=== PATIENT | female | born 1980 | race Caucasian/White ===

== ENCOUNTER → 2019-06-12 09:58 | Outpatient (BNVA) | payer BC, SELFPAY | PROVIDERS: Family Provider Family Medicine; PCP Family Medicine; Referring Provider Family Medicine; Visit Provider Internal Medicine Rheumatology | DX: M32.14 Glomerular disease in systemic lupus erythematosus (principal); Z79.899 Other long term (current) drug therapy; M32.9 Systemic lupus erythematosus, unspecified | CPT/HCPCS: 36415; 80076; 80197; 82565; 82575; 84132; 84156; 85025 ==

== ENCOUNTER → 2019-06-19 10:02 | Outpatient (BNVA) | payer BC, SELFPAY | PROVIDERS: Family Provider Family Medicine; PCP Family Medicine; Visit Provider Internal Medicine Rheumatology | DX: M32.9 Systemic lupus erythematosus, unspecified (principal); Z79.899 Other long term (current) drug therapy | CPT/HCPCS: 36415; 80197 ==

== ENCOUNTER → 2019-07-03 09:04 | Outpatient (BNVA) | payer BC, SELFPAY | PROVIDERS: Family Provider Family Medicine; PCP Family Medicine; Visit Provider Internal Medicine Rheumatology | DX: M32.9 Systemic lupus erythematosus, unspecified (principal); Z79.899 Other long term (current) drug therapy | CPT/HCPCS: 36415; 80197; 82565; 82575; 84132; 84156 ==

== ENCOUNTER → 2019-07-10 10:14 | Outpatient (BNVA) | payer BC, SELFPAY | PROVIDERS: Family Provider Family Medicine; PCP Family Medicine; Visit Provider Internal Medicine Rheumatology | DX: M32.14 Glomerular disease in systemic lupus erythematosus (principal); Z79.899 Other long term (current) drug therapy; R80.9 Proteinuria, unspecified; L65.8 Other specified nonscarring hair loss; T50.905A Adverse effect of unspecified drugs, medicaments and biological substances, initial encounter | CPT/HCPCS: 36415; 80076; 80197; 82565; 84132; 99215; G0463 ==

== ENCOUNTER → 2019-07-10 12:30 | Outpatient (BNVA) | payer BC, SELFPAY | PROVIDERS: Family Provider Family Medicine; PCP Family Medicine; Visit Provider Internal Medicine Rheumatology | DX: M32.14 Glomerular disease in systemic lupus erythematosus (principal) | CPT/HCPCS: 85025 ==

== ENCOUNTER → 2019-08-08 08:50 | Outpatient (BNVA) | payer BC, SELFPAY | PROVIDERS: Family Provider Family Medicine; PCP Family Medicine; Visit Provider Internal Medicine Rheumatology | DX: M32.14 Glomerular disease in systemic lupus erythematosus (principal); R80.9 Proteinuria, unspecified; Z79.899 Other long term (current) drug therapy | CPT/HCPCS: 36415; 80076; 80197; 82565; 82575; 84156; 85651; 86140 ==

== ENCOUNTER → 2019-08-08 08:58 | Outpatient (BNVA) | payer BC, SELFPAY | PROVIDERS: Family Provider Family Medicine; PCP Family Medicine; Visit Provider Internal Medicine Rheumatology | DX: M32.14 Glomerular disease in systemic lupus erythematosus (principal); R80.9 Proteinuria, unspecified; Z79.899 Other long term (current) drug therapy | CPT/HCPCS: 85025 ==

== ENCOUNTER → 2019-09-07 09:01 | Outpatient (BNVA) | payer BC, SELFPAY | PROVIDERS: Family Provider Family Medicine; PCP Family Medicine; Visit Provider Internal Medicine Rheumatology | DX: Z79.899 Other long term (current) drug therapy (principal) | CPT/HCPCS: 36415; 80076; 80197; 81001; 82565; 82570; 84156; 85025; 86140; 86160; 87086 ==

== ENCOUNTER → 2019-10-31 13:24 | Outpatient (BNVA) | payer BC, SELFPAY | PROVIDERS: Family Provider Family Medicine; PCP Family Medicine; Visit Provider Internal Medicine Rheumatology | DX: Z79.899 Other long term (current) drug therapy (principal); M32.14 Glomerular disease in systemic lupus erythematosus; N05.9 Unspecified nephritic syndrome with unspecified morphologic changes | CPT/HCPCS: 36415; 80197; 81003; 82565; 82575; 84156 ==

== ENCOUNTER → 2019-11-10 09:11 | Outpatient (BNVA) | payer BC, SELFPAY | PROVIDERS: Family Provider Family Medicine; PCP Family Medicine; Visit Provider Internal Medicine Rheumatology | DX: M32.14 Glomerular disease in systemic lupus erythematosus (principal); Z79.899 Other long term (current) drug therapy; R80.8 Other proteinuria; L65.9 Nonscarring hair loss, unspecified | CPT/HCPCS: 99214 ==

== ENCOUNTER → 2020-01-15 09:47 | Outpatient (BNVA) | payer BC, SELFPAY | PROVIDERS: Family Provider Family Medicine; PCP Family Medicine; Visit Provider Internal Medicine Rheumatology | DX: M32.14 Glomerular disease in systemic lupus erythematosus (principal); Z79.899 Other long term (current) drug therapy | CPT/HCPCS: 36415; 80076; 80197; 81001; 82565; 82575; 84156; 85025; 85651; 86140 ==

== ENCOUNTER → 2020-02-13 11:47 | Outpatient (BNVA) | payer BC, SELFPAY | PROVIDERS: Family Provider Family Medicine; PCP Family Medicine; Visit Provider Internal Medicine Rheumatology | DX: M32.14 Glomerular disease in systemic lupus erythematosus (principal); Z79.899 Other long term (current) drug therapy; R80.9 Proteinuria, unspecified; L65.8 Other specified nonscarring hair loss; O22.30 Deep phlebothrombosis in pregnancy, unspecified trimester; T50.905A Adverse effect of unspecified drugs, medicaments and biological substances, initial encounter; D64.9 Anemia, unspecified; Z3A.00 Weeks of gestation of pregnancy not specified; Z79.01 Long term (current) use of anticoagulants | CPT/HCPCS: 99214; 99215 ==

== ENCOUNTER → 2020-03-08 12:00 | Outpatient (BNVA) | payer BC, SELFPAY | PROVIDERS: Family Provider Family Medicine; PCP Family Medicine; Visit Provider Obstetrics & Gynecology | DX: N92.0 Excessive and frequent menstruation with regular cycle (principal) | CPT/HCPCS: 84443 ==

== ENCOUNTER → 2020-03-21 14:00 | Outpatient (BNVA) | payer BC, SELFPAY | PROVIDERS: Family Provider Family Medicine; PCP Family Medicine; Visit Provider Obstetrics & Gynecology | DX: Z86.718 Personal history of other venous thrombosis and embolism (principal) | CPT/HCPCS: 76830 ==

== ENCOUNTER → 2020-03-26 10:02 | Outpatient (BNVA) | payer BC, SELFPAY | PROVIDERS: Family Provider Family Medicine; PCP Family Medicine; Visit Provider Internal Medicine Rheumatology | DX: M32.9 Systemic lupus erythematosus, unspecified (principal); Z79.899 Other long term (current) drug therapy | CPT/HCPCS: 36415; 80076; 80197; 81001; 82565; 82570; 82728; 83540; 83550; 84156; 85025; 85651; 86140 ==

== ENCOUNTER → 2020-04-04 09:45 | Outpatient (BNVA) | payer BC, SELFPAY | PROVIDERS: Family Provider Family Medicine; PCP Family Medicine; Visit Provider Obstetrics & Gynecology | DX: Z11.59 Encounter for screening for other viral diseases (principal); N92.0 Excessive and frequent menstruation with regular cycle | CPT/HCPCS: 87635 ==

== ENCOUNTER 2020-04-09 05:53 | Day surgery (SDC) | payer BC, SELFPAY ==
[2020-04-05 09:38] VITALS: BMI 23.6
--- NOTE | 2020-04-05 09:48 | P.ANESASSM_ITS ---
Pre-Anesthetic Assessment Pre-Anesthetic Assessment: Height/Weight: Height 1.68 m Weight 66.224 kg Preop Diagnosis: Undesired fertility Proposed Procedure: Operation Date: 04/09/20 07:00 Proposed Procedures p Hysteroscopy w/ endometrial Ablation w/ Novasure 85050 50793 N92.0 Z30.431(Not Applicable) - Miko Munson MD s Laparoscopic Tubal Fulguration with complete salpingectomy(Bilateral) - Miko Munson MD Familial anesthetic complications: None Social: Social History: No alcohol and No tobacco Exam: Pre-Anes Outpt Exam: alert, oriented x 3, clear to auscultation bilaterally and regular rate & rhythm Airway: Cervical ROM: WNL MP: 2 Dentition: Chipped and False CV/HEM: CV/HEM: Anemia, DVT (2019 on eliquis) and HTN : : Chronic renal Insufficiency Comments: lupus nephritis Metabolic: Metabolic: Hyperlipidemia Comments: Lupus on immunosuppressants (MFA, prednisone, prograff) Prograff levels checked every 3 months - last one checked in february Neuropsych: Neuropsych: 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, dilated L pupil ) Anesthetic Plan: ASA status: 3 Anesthesia: General Risk of > 500 ml blood loss (7ml/kg in children): No PFSH Anesthesia PFSH: Medical History (Updated 03/11/20 @ 18:23 by Miko Munson MD) Drug-related hair loss High risk medication use History of CVA (cerebrovascular accident) (~2007) History of deep vein thrombosis (DVT) during History of DVT of lower extremity (~2018) all in the left leg--- has been on Eliquis since that time Labile hypertension Lupus Lupus nephritis, ISN/RPS class IV Non-nephrotic range proteinuria 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 Shortness of breath Surgical History History of abdominal surgery placement of feeding tube; later removed Family History Grandmother Colon cancer maternal Cancer PGM-- Pancreatic Grandfather Diabetes Maternal Heart disease Paternal and Maternal Hypercholesteremia Maternal and Paternal Hypertension Maternal Family/Other Colon cancer Maternal Uncle Mother Thyroid disease Social History (Updated 03/25/20 @ 17:27 by Miko Munson MD) Smoking and tobacco status: former smoker Alcohol intake: current Substance/Drug Use: never History of recent travel: No Additional social history: - Tobacco use: Former- November 2008 Alcohol use: Occasionally Drug use: Never Data Anesthesia Cardiac Studies: No Data to Display
[2020-04-09] VITALS (7 sets, daily range): BP systolic 111–135; BP diastolic 72–89; PULSE 59–81; RESP 12–19; TEMP 36.2–36.7; O2SAT 99–100
[2020-04-09 06:14] LABS: OR HCG Qualitative Urine Negative (Negative)
[2020-04-09] MEDS: sodium chloride 0.9% 1,000 ML 30 ML IV (06:29)
[2020-04-09] MEDS: ketorolac 30 mg/mL INJ IVP (06:34)
[2020-04-09 06:43] LABS: Basophils % 0.3 %; Eosinophils % 0.5 %; Hematocrit 34.7 % (37.0-47.0); Hemoglobin 10.9 g/dL (11.5-15.3); Lymphocytes % 46.8 %; Mean Corpuscular HGB Conc 31.4 g/dL (30.0-36.0); Mean Corpuscular Hemoglobin 27.9 pg (28.0-34.0); Mean Platelet Volume 11.3 fL (7.4-10.4); Monocytes # 0.5 10^3/uL (0.2-0.9); Monocytes % 7.6 %; Neutrophils # 2.88 10^3/uL (1.8-7.7); Neutrophils % 44.6 %; Nucleated Red Blood Cells % 0 %; Platelet Count 224 10^3/cmm (130-400); Red Cell Distribution Width 14.8 % (12.1-15.1); White Blood Count 6.5 10^3/uL (4.0-10.0)
--- NOTE | 2020-04-09 06:48 | W.PM.OPSUD ---
Surgery/Procedure H&P Update DATE OF PROCEDURE: April 09, 2020 DATE H&P PERFORMED: 03/21/20 H&P UPDATE INFORMATION: I have reviewed H&P completed within last 30 days, I have examined patient prior to procedure, No changes to prior documentation and H&P is in [facility] EMR on date indicated PREOP DIAGNOSIS: Menorrhagia, Iron deficiency anemia, Undesired fertility PLANNED PROCEDURE: Operation Date: 04/09/20 07:00 Proposed Procedures p Hysteroscopy w/ endometrial Ablation w/ Novasure 86304 [id number] N92.0 Z30.431(Not Applicable) - Miko Munson MD s Laparoscopic Tubal Fulguration with complete salpingectomy(Bilateral) - Miko Munson MD
--- NOTE | 2020-04-09 08:04 | P.OP_ITS ---
Operative Report Date of procedure: April 09, 2020 Pre-op Diagnosis: Menorrhagia, Iron deficiency anemia, Undesired fertility Post-op Diagnosis: Menorrhagia, Iron deficiency anemia, Undesired fertility Procedure Done: Hysteroscopy with NovaSure endometrial ablation, Laparoscopy, Paracervical block Specimens removed/disposition: None Surgeon: Miko Munson Credit Collections Clerk: None Anesthesia: General and Other (Paracervical block with 2% lidocaine with epinep hrine) Estimated blood loss (mL): 5 IV fluids (mL): 200 Urine output (mL): 5 Complications: None Findings: Extensive abdominal adhesions. Left upper quadrant with extensive adhesions between the liver and omentum to the abdominal wall, forming a small pocket. Left lower quadrant extensive adhesions. Unable to perform laparoscopic sterilization. Brief History: Patient is a 39-year-old female, LMP 03/06/2020, control: ParaGard IUD. She presented to the office due to heavy menstrual bleeding. She had had a DVT approximately 1 year ago and was on Eliquis. She typically has to change a pad every 2 hours and will bleed through to her clothing at least once with each menstrual cycle. She reports the passage of large clots as well. She is not allowed to use any estrogen-containing control due to her DVT history and history of stroke. I had discussed with her options of switching from a ParaGard IUD to a progesterone containing IUD to control the bleeding. However, she does not want to use any type of hormonal control methods because of her medical history. As a result endometrial ablation was discussed with her. I discussed with her that some type of sterilization is also necessary with an ablation as the ablation will not prevent . Questions were answered. She wishes to proceed with sterilization and endometrial ablation. Procedure: The patient was taken to the operating room where general anesthesia was obtained. She was prepped and draped in the usual sterile fashion in the dorsal supine position with legs in Pawel style stirrups. Sequential compression boots had been placed prior to starting the case. Straight catheterization was performed. A weighted speculum was placed in the vagina and the cervix was grasped with a single-tooth tenaculum. Exam under anesthesia was performed and the patient was noted to have first-degree uterine prolapse. A paracervical block was performed with a total of 10 mL of 2% lidocaine with epinephrine used. Cervix was serially dilated until a ZUMI could be placed. Due to prior abdominal surgeries around the navel, left upper quadrant insertion was performed. The skin was injected with 2% lidocaine with epinephrine at the midclavicular line just medial to the costal margin. Incision was made with a knife and a 5 mm trocar and sheath inserted under direct visualization using an Optiview type technique. Trocar was removed and location confirmed with the laparoscope. Small amount of carbon dioxide was used. Patient was found to have a small pocket that we had entered into within the abdominal cavity with extensive adhesions involving the liver and omentum surrounding the area of the pocket. No openings could be identified for allowing access or visualization into the rest of the abdomen. The sites were reapproximated with a single stitch of 4-0 Vicryl suture. Skin glue was applied to the incision sites. As a result, a left lower quadrant insertion was performed. The skin was injected with 2% lidocaine with epinephrine lateral to the inferior epigastric vessels. Skin incision was made with a knife and a 5 mm trocar and sheath inserted under direct visualization using an Optiview type technique. Upon entry into the abdominal cavity again a small amount of carbon dioxide was used to distend the pocket. Again extensive adhesions were found with no access to the rest of the abdomen. As a result, decision was made not to proceed with the sterilization. I attempted to remove as much of the carbon dioxide as possible. The ZUMI was removed and the cervix grasped with a single-tooth tenaculum. A hysteroscope was inserted through the cervix and crystalloid solution was used as a distention media. The endometrial cavity was inspected and appeared normal. Both tubal ostia were identified. No masses were noted. Using the NovaSure sound, endometrial cavity length was measured at 4.5 cm. The NovaSure device was inserted and device was deployed. The device was moved up and down and left and right until no further with adjustment occurred. Uterine width was measured at 3.4 cm. Settings were entered in the NovaSure machine and wattage was set at 84 Fraire. Cavity integrity check was performed and integrity confirmed. Device was then activated. Total treatment time was 63 seconds. Device was removed. The tenaculum was removed and there was minimal bleeding from the tenaculum site. Patient tolerated the procedure well. Sponge and needle counts were correct. DRAINS: None POSTOPERATIVE STATUS: The patient was transferred to the recovery room in satisfactory condition DISPOSITION: Discharge to home when criteria was met. FOLLOWUP APPOINTMENT: Patient is to follow-up in my office in approximately 2 weeks. MEDICATIONS: [place] 5/325 mg, 1 to 2 tablets every 6 hours as needed for pain, #10, 0 refills She may resume her usual home medications.
--- NOTE | 2020-04-09 17:27 | ANE.PACU2 ---
Inpatient post-anesthesia follow up: Airway intact: Yes Vital signs: Temperature 98.1 F Pulse Rate 59 Respiratory Rate 18 Blood Pressure 129/79 Pulse Oximetry 100 Oxygen Delivery Me thod Room Air Oxygen Flow Rate Fraction of Inspir ed Oxygen Hydration adequate: Yes Nausea and vomiting: No Pain level: 2 Mental status: Baseline
== END 2020-04-09 09:50 | disposition home or self-care (01) ==
PROVIDERS: PCP Family Medicine; Visit Provider Obstetrics & Gynecology
PROC: 0U598ZZ Destruction of Uterus, Via Natural or Artificial Opening Endoscopic (ICD-10-PCS; CPT 58563; principal; 2020-04-09 07:00)
PROC: (CPT 58670; 2020-04-09 07:00)
DX: Z30.2 Encounter for sterilization (principal); D50.9 Iron deficiency anemia, unspecified; N92.0 Excessive and frequent menstruation with regular cycle; Z86.718 Personal history of other venous thrombosis and embolism; I10 Essential (primary) hypertension; Z79.01 Long term (current) use of anticoagulants; E78.5 Hyperlipidemia, unspecified; Z86.73 Personal history of transient ischemic attack (TIA), and cerebral infarction without residual deficits; Z87.891 Personal history of nicotine dependence
CPT/HCPCS: 58563; 12345; 81025; 84703; 85025; J1885; J2405; J2704; J2710; J3010; J3490; J7030

== ENCOUNTER 2020-05-28 12:15 | Outpatient (CLI) | payer BC, SELFPAY ==
--- NOTE | 2020-05-28 12:45 | USCV_ITS ---
June Hein Age: 39 Gender: F : 1980 Exam Date: 05/28/2020 12:36 Ordering Phys: Reid Ramos MD ([email or web address]) Technologist: Teri Bowman [place] [facility] [place]: shortness of breath BP: 159 / 105 HR: 71 Rhythm: Sinus Technical Quality: Good MEASUREMENTS (Male / Female) Normal Values 2D ECHO LV Diastolic Diameter PLAX 3.3 cm 4.2 - 5.9 / 3.9 - 5.3 cm LV Systolic Diameter PLAX 2.8 cm LV Chamber Size 4.2 cm IVS Diastolic Thickness 1.2 cm 0.6 - 1.0 / 0.6 - 0.9 cm IVS Systolic Thickness 1.2 cm LVPW Diastolic Thickness 1.4 cm 0.6 - 1.0 / 0.6 - 0.9 cm LVPW Systolic Thickness 1.5 cm RV Chamber Size 1.6 cm LVOT Diameter 1.9 cm LV Ejection Fraction 2D Teich 34.4 % LV Ejection Fraction MOD 2C 72.2 % LV Ejection Fraction 2C AL 72.6 % LA Diameter 2.4 cm LA Width 2.9 cm LA Height 3.0 cm RA Width 2.9 cm RA Height 2.5 cm Aorta at Sinotubular Diameter 2.7 cm M-MODE LV Diastolic Diameter MM 4.9 cm 4.2 - 5.9 / 3.9 - 5.3 cm LV Systolic Diameter MM 3.1 cm LV Ejection Fraction MM Teich 65.5 % IVS Diastolic Thickness MM 0.9 cm 0.6 - 1.0 / 0.6 - 0.9 cm IVS Systolic Thickness MM 1.3 cm LVPW Diastolic Thickness MM 0.6 cm 0.6 - 1.0 / 0.6 - 0.9 cm LVPW Systolic Thickness MM 1.2 cm Aortic Annulus Diameter 2.4 cm LA Ao Ratio MM 0.9 MV E Point Septal Separation 0.3 cm DOPPLER AV Peak Velocity 124.0 cm/s LVOT Peak Velocity 92.0 cm/s AV Area Cont Eq vti 2.3 cm squared AV Area Cont Eq pk 2.1 cm squared MV Area PHT 4.6 cm squared Mitral E to A Ratio 1.1 MV E' Velocity 44.0 cm/s Mitral E to MV E' Ratio 7.3 Mitral E to LV E' Lateral Ratio 7.7 Mitral E to LV E' Septal Ratio 7.0 TR Peak Velocity 138.3 cm/s TR Peak Gradient 7.7 mmHg TR Mean Velocity 114.3 cm/s TR Mean Gradient 5.4 mmHg TR Velocity Time Integral 29.5 cm TV Peak E Velocity 82.0 cm/s Right Atrial Pressure 3.0 mmHg Pulmonary Artery Systolic Pressu 10.7 mmHg PV Peak Velocity 82.7 cm/s RV Acceleration Time 0.1 s RV Ejection Time 0.3 s RV AcT/ET 0.4 FINDINGS Left Ventricle Normal left ventricular size, systolic function and wall thickness, with no regional wall motion abnormalities. Left ventricular ejection fraction is estimated at 65 %. Normal diastolic function. Right Ventricle Normal right ventricular size and systolic function. Right ventricular systolic pressure 10.7 mmHg. Right Atrium Normal right atrial size. Right atrial pressure estimated at 3 mmHg. Left Atrium Normal left atrial size. Mitral Valve Structurally normal mitral valve. No mitral valve stenosis. Trace mitral valve regurgitation. Aortic Valve Structurally normal trileaflet aortic valve. No aortic valve stenosis. Tricuspid Valve Structurally normal tricuspid valve. No tricuspid valve stenosis. Trace to mild tricuspid valve regurgitation. Pulmonic Valve Structurally normal pulmonic valve. No pulmonary valve stenosis. Trace pulmonary valve regurgitation. Pericardium No pericardial effusion. Aorta Normal size aortic root and proximal ascending aorta. Normal- sized inferior vena cava with normal respiratory variation. CONCLUSIONS 1. Normal left ventricular size, systolic function and wall thickness, with no regional wall motion abnormalities. Left ventricular ejection fraction is estimated at 65 %. Normal diastolic function. 2. Normal right ventricular size and systolic function. 3. No significant valvular abnormality. 4. No pericardial effusion. 5. No prior similar studies to compare. Araceli Romeo MD (Electronically Signed) Final Date: 29 May 2020 17:02 S
== END 2020-05-28 12:16 | disposition home or self-care (01) ==
LOC: US 12:16
PROVIDERS: PCP Family Medicine; Visit Provider Internal Medicine Cardiovascular Disease
DX: R06.02 Shortness of breath (principal)
CPT/HCPCS: 93306

== ENCOUNTER → 2020-06-13 12:55 | Outpatient (BNVA) | payer BC, SELFPAY | PROVIDERS: PCP Family Medicine; Visit Provider Internal Medicine Rheumatology | DX: M32.14 Glomerular disease in systemic lupus erythematosus (principal); Z79.899 Other long term (current) drug therapy; Z79.52 Long term (current) use of systemic steroids; D50.0 Iron deficiency anemia secondary to blood loss (chronic); R80.9 Proteinuria, unspecified; L65.8 Other specified nonscarring hair loss; T50.905A Adverse effect of unspecified drugs, medicaments and biological substances, initial encounter; Z86.73 Personal history of transient ischemic attack (TIA), and cerebral infarction without residual deficits; Z87.891 Personal history of nicotine dependence | CPT/HCPCS: 99214 ==

== ENCOUNTER 2020-07-04 10:47 | Outpatient (CLI) | payer BC, SELFPAY ==
[2020-07-04 11:14] LABS: Basophils % 0.3 %; Eosinophils % 0.1 %; Hematocrit 39.3 % (37.0-47.0); Hemoglobin 12.6 g/dL (11.5-15.3); Lymphocytes # 1.2 10^3/uL (0.8-4.8); Lymphocytes % 17.7 %; Mean Corpuscular HGB Conc 32.1 g/dL (30.0-36.0); Mean Corpuscular Hemoglobin 29.4 pg (28.0-34.0); Mean Corpuscular Volume 91.8 fL (81-99); Mean Platelet Volume 10.6 fL (7.4-10.4); Monocytes # 0.3 10^3/uL (0.2-0.9); Monocytes % 3.9 %; Neutrophils # 5.39 10^3/uL (1.8-7.7); Neutrophils % 77.6 %; Nucleated Red Blood Cells % 0 %; Platelet Count 199 10^3/cmm (130-400); Red Blood Count 4.28 10^6/uL (4.1-5.3); Red Cell Distribution Width 12.9 % (12.1-15.1)
[2020-07-04 11:34] LABS: Alanine Aminotransferase 9 U/L (0-33); Alkaline Phosphatase 60 IU/L (35-105); Aspartate Amino Transferase 11 U/L (0-32); C Reactive Protein 0.3 mg/L (0.0-4.9); Globulin 2.2 g/dL (1.3-4.6); Glomerular Filtration Rate 70.1 mL/min (90-130); Total Bilirubin 0.3 mg/dL (0.15-1.2); Total Protein 6.2 g/dL (6.6-8.7)
== END 2020-07-04 10:48 | disposition home or self-care (01) ==
LOC: LAB 10:48
PROVIDERS: PCP Family Medicine; Visit Provider Internal Medicine Rheumatology
DX: M32.14 Glomerular disease in systemic lupus erythematosus (principal); M32.9 Systemic lupus erythematosus, unspecified; Z79.899 Other long term (current) drug therapy
CPT/HCPCS: 36415; 80076; 80197; 82565; 85025; 86140

== ENCOUNTER → 2020-10-03 10:01 | Outpatient (BNVA) | payer BC, SELFPAY | PROVIDERS: PCP Family Medicine; Visit Provider Internal Medicine Rheumatology | DX: M32.14 Glomerular disease in systemic lupus erythematosus (principal); M32.9 Systemic lupus erythematosus, unspecified; Z79.899 Other long term (current) drug therapy | CPT/HCPCS: 36415; 80076; 80197; 82565; 85025; 86140 ==

== ENCOUNTER → 2020-10-10 09:35 | Outpatient (BNVA) | payer BC, SELFPAY | PROVIDERS: PCP Family Medicine; Visit Provider Internal Medicine Rheumatology | DX: M32.14 Glomerular disease in systemic lupus erythematosus (principal); L65.8 Other specified nonscarring hair loss; T50.905A Adverse effect of unspecified drugs, medicaments and biological substances, initial encounter; Z79.899 Other long term (current) drug therapy; R80.9 Proteinuria, unspecified; Z87.891 Personal history of nicotine dependence | CPT/HCPCS: 81001; 82570; 84156; 99214 ==

== ENCOUNTER → 2020-12-24 09:56 | Outpatient (BNVA) | payer BC, SELFPAY | PROVIDERS: PCP Family Medicine; Visit Provider Internal Medicine Rheumatology | DX: M32.14 Glomerular disease in systemic lupus erythematosus (principal); M32.9 Systemic lupus erythematosus, unspecified; Z79.899 Other long term (current) drug therapy | CPT/HCPCS: 36415; 80076; 80197; 81001; 82565; 82570; 84156; 85025; 86140 ==

== ENCOUNTER → 2021-04-22 12:44 | Outpatient (BNVA) | payer BC, SELFPAY | PROVIDERS: PCP Family Medicine; Visit Provider Internal Medicine Rheumatology | DX: Z79.899 Other long term (current) drug therapy (principal); M32.14 Glomerular disease in systemic lupus erythematosus | CPT/HCPCS: 36415; 80076; 80197; 82565; 85025; 86140 ==

== ENCOUNTER 2021-08-11 12:00 | Outpatient (CLI) | payer OTHER, SELFPAY ==
--- NOTE | 2021-08-11 12:14 | XR_ITS ---
WS: [id number] XR hip RT 2-3V wo/w pel* [id number] REASON FOR EXAM: RIGHT HIP PAIN FINDINGS: No fracture identified. Mild narrowing of the joint space with mild osteophytic spurring and subchondral sclerosis of the lyndon tabulum. There is some irregularity in the contour of the articular surface of the femoral head is suggestion of increased lucency within the femoral head and a portion of the femoral neck. Iliac bone and superior and inferior pubic ramus are unremarkable. No soft tissue abnormality. XR/XR hip RT 2-3V wo/w pel* [id number] IMPRESSION: Some concern for the appearance of the femoral head and neck. There is a potent ial for transient osteoporosis or aseptic necrosis of the femoral head. Would r ecommend an image of the asymptomatic left hip for comparison. If hips are not symmetric in appearance and MRI would be appropriate as clinically warranted.
== END 2021-08-11 12:01 | disposition home or self-care (01) ==
PROVIDERS: PCP Family Medicine; Visit Provider Clinical Nurse Specialist Adult Health
DX: M25.551 Pain in right hip (principal)
CPT/HCPCS: 73502

== ENCOUNTER 2021-08-12 11:05 | Outpatient (CLI) | payer OTHER, SELFPAY ==
--- NOTE | 2021-08-12 11:16 | XRR_ITS ---
PROCEDURE INFORMATION: Exam: XR Left Hip Exam date and time: 08/12/2021 11:16 AM Age: 40 years old Clinical indication: Pain and injury or trauma; Fall; Work related; Blunt trauma (contusions or hematomas); Hip pain; Left hip TECHNIQUE: Imaging protocol: XR Left hip. Views: 2 or 3 views hip with pelvis when performed. COMPARISON: ES surgery / GI images 04/09/2020 6:45 AM FINDINGS: Bones/joints: Unremarkable. No acute fracture. Soft tissues: Unremarkable. XR/XR hip LT 2-3V wo/w pel* [id number] IMPRESSION: No acute findings.
== END 2021-08-12 11:06 | disposition home or self-care (01) ==
LOC: RAD 11:08
PROVIDERS: PCP Family Medicine; Visit Provider Family Medicine
DX: M25.552 Pain in left hip (principal)
CPT/HCPCS: 73502

== ENCOUNTER 2021-10-03 10:32 | Outpatient (CLI) | payer OTHER, SELFPAY ==
[2021-10-03 11:32] LABS: Basophils % 0.1 %; Hematocrit 39.8 % (37.0-47.0); Lymphocytes # 1.4 10^3/uL (0.8-4.8); Lymphocytes % 15.8 %; Mean Corpuscular HGB Conc 32.7 g/dL (30.0-36.0); Mean Corpuscular Hemoglobin 29.7 pg (28.0-34.0); Mean Corpuscular Volume 91.1 fl (81-99); Mean Platelet Volume 10.7 fL (7.4-10.4); Monocytes # 0.3 10^3/uL (0.2-0.9); Monocytes % 3.3 %; Neutrophils # 7.22 10^3/uL (1.8-7.7); Neutrophils % 80.4 %; Nucleated Red Blood Cells % 0 %; Platelet Count 216 10^3/cmm (130-400); Red Blood Count 4.37 10^6/uL (4.1-5.3); Red Cell Distribution Width 13.2 % (12.1-15.1)
[2021-10-03 11:56] LABS: Alanine Aminotransferase 7 U/L (0-33); Albumin Level 4.1 g/dL (3.5-5.2); Alkaline Phosphatase 72 IU/L (35-105); Aspartate Amino Transferase 12 U/L (0-32); C Reactive Protein 4.5 mg/L (0.0-4.9); Globulin 2.7 g/dL (1.3-4.6); Glomerular Filtration Rate 79.4 mL/min (90-130); Total Bilirubin 0.2 mg/dL (0.15-1.2); Total Protein 6.8 g/dL (6.6-8.7)
[2021-10-03 12:16] LABS: Bacteria Urine 2+ /hpf; Bilirubin Urine Neg (Negative); Blood Urine Neg (Negative); Glucose Urine UA Norm (Normal); Ketones Urine Negative (Negative); Leukocyte Esterase Urine Negative (Negative); Nitrate Urine Negative (Negative); Protein Urine Trace (Negative); RBC Urine 0-4 /hpf (0-2); Specific Gravity, Urine 1.025 (1.005-1.030); Urine Appearance Cloudy (CLEAR); Urine Color Yellow (Yellow); Urobilinogen Urine Norm (Negative); WBC Urine 0-4 /hpf (0-5); pH Urine 5 (5-7)
[2021-10-03 12:29] LABS: Urine Creatinine 209 mg/dL (28-217)
[2021-10-03 12:32] LABS: Urine Protein Random 36 mg/dL
== END 2021-10-03 10:33 | disposition home or self-care (01) ==
PROVIDERS: PCP Family Medicine; Visit Provider Internal Medicine Rheumatology
DX: M32.14 Glomerular disease in systemic lupus erythematosus (principal); Z79.899 Other long term (current) drug therapy
CPT/HCPCS: 80076; 80197; 81001; 82565; 82570; 84156; 85025; 86140

== ENCOUNTER 2021-10-20 08:32 | Observation (INO) | payer OTHER, SELFPAY ==
[2021-10-13 11:18] VITALS: BMI 25.0
[2021-10-20] VITALS (20 sets, daily range): BP systolic 78–138; BP diastolic 45–105; PULSE 59–85; RESP 16–18; TEMP 36.1–37.1; O2SAT 95–100
[2021-10-20] MEDS: sodium chloride 0.9% 1,000 ML 30 ML IV (06:27)
[2021-10-20] MEDS: gabapentin 300 mg Capsule PO ×2 (06:28→17:47)
[2021-10-20] MEDS: CELEcoxib 200 mg Capsule 400 MG PO (06:28)
[2021-10-20] MEDS: oxyCODONE 20 mg ER (12 HR) Tablet PO (06:28)
[2021-10-20] MEDS: acetaminophen 500 mg Tablet 1000 MG PO ×3 (06:29→17:45)
--- NOTE | 2021-10-20 06:44 | P.ANESASSM_ITS ---
Pre-Anesthetic Assessment Height/Weight: Height 1.68 m Weight 70.307 kg Temp Pulse Resp BP Pulse Ox 98.6 F 84 18 134/105 98 10/20/21 06:07 10/20/21 06:07 10/20/21 06:07 10/20/21 06:07 10/20/21 06:07 Preop Diagnosis: Osteonecrosis right hip Operation Date: 10/20/21 07:00 Proposed Procedures p Total Hip [id number]/avascular necrosis of bone M87.00(Right) - Aron Stokes MD Familial anesthetic complications: None Was Beta Shyla taken within 24 hours: Yes Was Clonidine taken within 24 hours: N/A Last intake: Intake Last Liquid Date 10/19/21 Last Liquid Time 11:50 Last Solid Date 10/19/21 Last Solid Time 19:00 Social No alcohol and No tobacco Exam alert, oriented x 3, clear to auscultation bilaterally and regular rate & rhythm Airway Submandibular: within normal limits Cervical ROM: within normal limits Mallampati: Class II Dentition: false Pulmonary None reported Denies hx of PE CV/HEM Deep Vein Thrombosis (On Eliquis held since 10/15/21) and Hypertension (Labile) PFO per patient thought not to be cause of stroke TTE 2019 CONCLUSIONS ?1. Normal left ventricular size, systolic function and wall ?thickness, with no regional wall motion abnormalities. Left ?ventricular ejection fraction is estimated at 65 %. Normal ?diastolic function. ?2.? Normal right ventricular size and systolic function. ?3.? No significant valvular abnormality. ?4.? No pericardial effusion. ?5.? No prior similar studies to compare. Lupus nephritis Hepatic None reported GI None reported Metabolic Prednisone 5 mg daily Musc/skel Osteoarthritis/DJD Right femoral head avascular necrosis Neuropsych Cerebrovascular Accident Stroke in 2007 with right sided hemiparesis initially now recovered some. Able to ambulate. On exam 4/5 strength right plantar flexion and foot abduction. 4/5 strength in right UE flexion, abduction, adduction, and extension. 2/5 strength right pincer strength. Normal grimace, tongue protrusion, eyebrow raise. Per patient will have facial droop and slurred speech on occassion. Anesthetic Plan ASA status: 3 Anesthesia: Anesthesia Evaluation and Regional (specify below) (Spinal) Other: We discussed risk and benefits of general vs spinal anesthesia including DVT risk, infection, paralysis/catastrophic nerve injury, back bruising/pain, PDPH, conversion to general in case of spinal, PONV, sore throat (sometimes severe), corneal abrasion, positioning and peripheral nerve injuries, life threatening allergic reaction, post operative ICU admission requiring prolonged intubation, stroke, heart attack, , post operative delirium and/or post operative cognitive decline, and rare incidences of recall (under general anesthesia). Patient prefers spinal anesthetic today. Risk of > 500 ml blood loss (7ml/kg in children): No Medications/Allergies Home Medications Medication Instructions Recorded Confirmed Last Taken Type antiarthritic combination no.2 900 500 mg PO BID 07/10/19 10/20/21 10/19/21 History mg tablet (glucosamine-chondroitin) apixaban 5 mg tablet (Eliquis) 5 mg PO BID 07/10/19 10/20/21 10/15/21 History aspirin 81 mg tablet,delayed 81 mg PO DAILY 07/10/19 10/20/21 10/15/21 History release (Adult Aspirin Regimen) calcium carbonate 500 mg calcium 500 mg PO DAILY 07/10/19 10/20/21 10/19/21 History (1,250 mg) capsule pravastatin 40 mg tablet 40 mg PO DAILY 07/10/19 10/20/21 10/19/21 History topiramate 25 mg tablet 25 mg PO DAILY 07/10/19 10/20/21 10/19/21 History furosemide 40 mg tablet 40 mg PO QAM PRN 08/08/19 10/20/21 07/26/19 History losartan 100 mg tablet 100 mg PO DAILY 90 Days #90 tab 08/08/19 10/20/21 Rx potassium chloride 20 mEq oral 20 meq PO DAILY PRN 08/08/19 10/13/21 06/21/19 History packet acyclovir 400 mg tablet 400 mg PO DAILY PRN tab 05/03/20 10/13/21 05/14/21 History metoprolol succinate 25 mg 12.5 mg PO .QPM #45 tab 10/03/20 10/20/21 10/19/21 Rx tablet,extended release 24 hr ascorbic acid (vitamin C) 500 mg 250 mg PO DAILY 02/25/21 10/20/21 10/19/21 History tablet hydrocodone 5 mg-acetaminophen 325 5 tab PO PRN 09/16/21 10/20/21 10/20/21 History mg tablet hydroxychloroquine 200 mg tablet See Rx Instructions PO DAILY #135 09/29/21 10/20/21 10/19/21 Rx tab mycophenolate mofetil 500 mg 500 mg PO BID 30 Days #180 tab 09/29/21 10/20/21 10/19/21 Rx tablet (CellCept) prednisone 5 mg tablet 5 mg PO DAILY #90 tab 09/29/21 10/20/21 10/19/21 Rx tacrolimus 1 mg capsule, 2 mg PO Q12H #360 cap 09/29/21 10/20/21 10/19/21 Rx immediate-release Allergies Allergy/AdvReac Type Severity Reaction Status Date / Time Sulfa (Sulfonamide Allergy Intermediate red dots Verified 10/13/21 11:03 Antibiotics) all over body lemon Allergy Unknown Unknown Verified 10/13/21 11:03 PFS Anesthesia Medical History Drug-related hair loss improved 01/2021 High risk medication use History of CVA (cerebrovascular accident) (~2007) History of deep vein thrombosis (DVT) during History of DVT of lower extremity (~2018) all in the left leg--- has been on Eliquis since that time Labile hypertension Lupus Lupus nephritis, ISN/RPS class IV No pertinent past medical history neghx: dm,thyroid,dvt/pe PCP: Dr. 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 Dx: Menorrhagia, iron deficiency anemia. [place] [facility] [place] S/P laparoscopy (04/09/20) Performed at time of endometrial ablation. [place] [facility] [place] Found extensive adhesions throughout the abdomen. Family History Grandmother Colon cancer maternal--dx age unknown Cancer PGM-- Pancreatic Grandfather Diabetes Maternal Heart disease Paternal and Maternal Hypercholesteremia Maternal and Paternal Hypertension Maternal Family/Other Colon cancer Maternal Uncle--dx age unknown Mother Thyroid disease Denies family history of Ovarian cancer Breast cancer Uterine cancer Stroke Social History Smoking and tobacco status: former smoker Female Reproductive History Date of last menstrual period: 09/13/19 Data Anesthesia Cardiac Studies: Echocardiogram Ultrasound 05/28/20
--- NOTE | 2021-10-20 06:55 | P.HP_ITS ---
Same Day Surgery H&P Indication for Procedure/HPI DATE OF PROCEDURE: October 20, 2021 CHIEF COMPLAINT/INDICATIONFOR SURGICAL PROCEDURE: Right hip pain secondary to avascular necrosis. Here for right total hip arthroplasty PREOP DIAGNOSIS: Osteonecrosis right hip PLANNED PROCEDURE: Operation Date: 10/20/21 07:00 Proposed Procedures p Total Hip [id number]/avascular necrosis of bone M87.00(Right) - Aron Stokes MD 41-year-old with 41-year-old female with 1 year history of progressive pain unresponsive to medications including hydrocodone. MRI is revealed avascular necrosis. Here for right total hip arthroplasty. Medications/Allergies* Home Medications Medication Instructions Recorded Confirmed Type antiarthritic combination no.2 900 500 mg PO BID 07/10/19 10/20/21 History mg tablet (glucosamine-chondroitin) apixaban 5 mg tablet (Eliquis) 5 mg PO BID 07/10/19 10/20/21 History aspirin 81 mg tablet,delayed 81 mg PO DAILY 07/10/19 10/20/21 History release (Adult Aspirin Regimen) calcium carbonate 500 mg calcium 500 mg PO DAILY 07/10/19 10/20/21 History (1,250 mg) capsule pravastatin 40 mg tablet 40 mg PO DAILY 07/10/19 10/20/21 History topiramate 25 mg tablet 25 mg PO DAILY 07/10/19 10/20/21 History furosemide 40 mg tablet 40 mg PO QAM PRN 08/08/19 10/20/21 History potassium chloride 20 mEq oral 20 meq PO DAILY PRN 08/08/19 10/13/21 History packet acyclovir 400 mg tablet 400 mg PO DAILY PRN tab 05/03/20 10/13/21 History ascorbic acid (vitamin C) 500 mg 250 mg PO DAILY 02/25/21 10/20/21 History tablet hydrocodone 5 mg-acetaminophen 325 5 tab PO PRN 09/16/21 10/20/21 History mg tablet Allergies/Adverse Reactions Allergy/AdvReac Type Severity Reaction Status Date / Time Sulfa (Sulfonamide Allergy Intermediate red dots Verified 10/13/21 11:03 Antibiotics) all over body lemon Allergy Unknown Unknown Verified 10/13/21 11:03 Current Medications: Generic Name Dose Route Start Last Admin Trade Name Freq PRN Reason Stop Dose Admin Sodium Chloride 1,000 mls @ 30 mls/hr 10/20/21 06:00 10/20/21 06:27 Sodium Chloride 0.9% IV 10/21/21 05:59 30 mls/hr .Q24H ARSENIO Administration Pertinent History/Comorbid Conditions* Medical History (Updated 02/25/21 @ 11:03 by Jade Mac APN, NACHO) Drug-related hair loss improved 01/2021 High risk medication use History of CVA (cerebrovascular accident) (~2007) History of deep vein thrombosis (DVT) during History of DVT of lower extremity (~2018) all in the left leg--- has been on Eliquis since that time Labile hypertension Lupus Lupus nephritis, ISN/RPS class IV No pertinent past medical history neghx: dm,thyroid,dvt/pe PCP: Dr. 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 Dx: Menorrhagia, iron deficiency anemia. [place] Munson [place] [facility] [place]. S/P laparoscopy (04/09/20) Performed at time of endometrial ablation. Per[place] Dr. Munson [place] [facility] [place]. Found extensive adhesions throughout the abdomen. Family History (Updated 02/25/21 @ 10:02 by Catherine Joyner) Colon cancer Grandmother maternal--dx age unknown Family/Other Maternal Uncle--dx age unknown Diabetes Grandfather Maternal Heart disease Grandfather Paternal and Maternal Hypercholesteremia Grandfather Maternal and Paternal Cancer Grandmother PGM-- Pancreatic Hypertension Grandfather Maternal Thyroid disease Mother Denies family history of Ovarian cancer Breast cancer Uterine cancer Stroke Social History Smoking and tobacco status: former smoker Pertinent Exam Findings alert, oriented x 3, clear to auscultation bilaterally, regular rate & rhythm and operative site marked Recommendations Surgery/Procedure today Coding Level of Care Code Acute 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
[2021-10-20] MEDS: tranexamic acid 1,000 mg/10mL SDV 1000 MG IRRIGATION (07:48)
[2021-10-20] MEDS: sodium chloride 0.9% 100 mL Bag XX (07:50)
--- NOTE | 2021-10-20 09:15 | PM.OP ---
Operative Report Date of procedure: October 20, 2021 Pre-op diagnosis: Preop Diagnosis Osteonecrosis right hip Post-op diagnosis: same Post-op diagnosis: Same Post-op findings: Same Procedure done: Right total hip arthroplasty Implants: 1) [place] 50 mm Trident 2 solid back acetabular shell 2) Size 5Stryker 132 degree neck angle Accolade 2 stem 3} 22mm standardfemoral head 4} MDM metal liner, size D Pathology: none sent Surgeon: Aron Stokes Anesthesia: Nerve Block (Spinal) Estimated blood loss (mL): 250 Complications: None Condition: stable Disposition: PACU Procedure: The patient was taken to the operating room and anesthesia provided by the anesthesia service. The patient was placed in the lateral position on a pegboard. A timeout was performed. The patient was draped in the usual fashion. A 15 cm long incision was made beginning just proximal to the greater trochanter and extending posteriorly to a point just distal to the trochanter on the posterior border of the trochanter. Dissection was carried down with electrocautery through the subcutaneous fat to the fascia xavier which was divided proximally and distally with curved scissors. The anterior two thirds of the gluteus medius and minimus were elevated off the hip with electrocautery. The capsule was divided in a H-like fashion. The hip was dislocated and a neck cut made just above the level of the lesser trochanter. Exposure of the acetabulum was facilitated with the acetabular retractors. Remnants of labrum and peripheral osteophytes were removed with electrocautery and a rongeur. A reamer 2 mm under the size the femoral head was utilized to ream medially to the base of the palm and are. Reaming was then increased in 1 mm intervals until a healthy rim a trabecular bone was encountered. The rim was touched with the reamer the size of the final acetabular shell to be placed. A final Trident 2 acetabular cup of the same size as the final reaming was press-fit into place. The ADM liner was secured. Attention was then focused on the femur. The canal was localized with a canal finder. Broaching was then accomplished until a stable broach size was obtained. A trial reduction with the head and neck provided excellent stability. The wound was irrigated with saline TXA and antibiotic solution. The final Gillian Accolade II stem was press-fit into place. The femoral head was placed and the hip was reduced. The hip was brought through range of motion and found to be free of impingement and stable. The anterior capsule was reapproximated with 1 Ethibond. The gluteus medius and minimus were repaired through bone with 5 Ethibond and reinforced with 1 Ethibond. The fascial xavier was closed with a running 0 Stratafix suture. Deep pelvic tissues were closed with 2-0 Stratafix and the skin with a running 4-0 l Stratafix. The skin was covered with a Prineo dressing and op site dressings.
--- NOTE | 2021-10-20 09:24 | XR_ITS ---
WS: [id number] Exam: XR hip RT 1V wo/[place] [id number] Date/Time of Exam: 10/20/2021 9:27 AM Reason For Exam: right total hip A right hip prosthesis has been placed. Postoperative changes in the adjacent soft tissues. XR/XR hip RT 1V wo/w pel [id number] IMPRESSION: 1. Right hip prosthesis in place as noted.
--- NOTE | 2021-10-20 09:26 | SUR.PHASEI ---
0[facility] on and working
--- NOTE | 2021-10-20 09:45 | PC.NURSE ---
received report from pacu. pt arrived on bed, a/o. surgical site assessed, dressing cdi. palpable pedal pulses. vss. pt oriented to room. family at bedside.
[2021-10-20] MEDS: CELEcoxib 200 mg Capsule PO ×2 (10:19→20:45)
[2021-10-20] MEDS: oxyCODONE 5 mg IR Tab/Cap PO ×2 (10:19→15:32)
[2021-10-20] MEDS: sodium chloride 0.9% 1,000 ML 100 ML IV ×2 (10:20→20:47)
--- NOTE | 2021-10-20 10:32 | PC.CHAP ---
Pastoral Care Encounter/Spiritual Assessment Type of Contact [] Declined energy efficient site manager visit [] Patient/Family/Request visit [] Outpatient visit [] Follow-up visit [] Physician referral [] Code/Alert [x] Routine visit [] Staff referral [] Actively dying [] Patient sleeping [] Family support [] [] Out of room [] Palliative care [] [] Receiving care in room [] Pre-surgical visit [] Trauma [] Long length of stay [] ICU visit [] Other: Relational/Emotional Strength [x] Patient feels connected with others/family/visitors/staff [] Distress [] Loneliness/isolation [] Abandonment Spirituality of Patient x[x] Person of Inessa [] Attends Mu-Ism of their Inessa [x] Believes in Prayer [] Reads Bible or Sabianism materials [] There are Spiritual issues to be addressed Multifocal Lens Assembler Interventions x [x] Prayer [x] Active listening [] Non-anxious presence [] Spiritual/emotional support [] Crisis/trauma care [] Spiritual counseling [] Bereavement support [] Provided bereavement packet [] Provided Bible/devotional materials [] Provided toy/stuffed animal, coloring book to patient or family member [] Provided Communion [] Anointing/[place] [] Salvation [x] Completed spiritual assessment [] Other: Impact on Illness or Injury [] Angry [] Fearful [] Anxious [] Often cries [] Exhaustion [] Unable to work [] Unable to attend taoism [] Unable to walk/stand [] Unable to read [] Unable to drive [] Unable to eat/drink [] Unable to sleep [] Unable to be with family [] Patient intubated [] Other: Summary Time spent with patient
--- NOTE | 2021-10-20 10:52 | ANE.PACU2 ---
Inpatient post-anesthesia follow up: Airway intact: Yes Vital signs: Temperature 98.8 F Pulse Rate 69 Respiratory Rate 16 Blood Pressure 106/69 Pulse Oximetry 95 Oxygen Delivery Me thod Room Air Oxygen Flow Rate 6 Fraction of Inspir ed Oxygen Hydration adequate: Yes Nausea and vomiting: No Pain level: 4 Mental status: Baseline
[2021-10-20] MEDS: morphine 4 mg/mL SDV 1 mL 2 MG IVP ×6 (11:08→22:23)
[2021-10-20] MEDS: ondansetron 2 mg/ML SDV 2 mL 4 MG IVP ×2 (12:15→17:59)
[2021-10-20] MEDS: apixaban 5 mg Tablet PO (17:44)
[2021-10-20] MEDS: tacrolimus 0.5 mg Capsule 2 MG PO (17:45)
[2021-10-20] MEDS: metoprolol succinate ER (24 HR) 25 mg Tablet 12.5 MG PO (17:47)
[2021-10-21] VITALS (7 sets, daily range): BP systolic 122–135; BP diastolic 80–85; PULSE 82–89; RESP 12–18; TEMP 36.7–36.9; O2SAT 96–97
[2021-10-21] MEDS: morphine 4 mg/mL SDV 1 mL 2 MG IVP ×3 (00:36→06:15)
[2021-10-21] MEDS: acetaminophen 500 mg Tablet 1000 MG PO ×2 (00:49→08:26)
[2021-10-21 03:16] LABS: Hemoglobin 13.1 g/dL (11.5-15.3)
[2021-10-21] MEDS: tacrolimus 0.5 mg Capsule 2 MG PO (06:15)
[2021-10-21] MEDS: gabapentin 300 mg Capsule PO (08:16)
[2021-10-21] MEDS: ascorbic acid 500 mg Tablet 250 MG PO (08:16)
[2021-10-21] MEDS: predniSONE 5 mg Tablet PO (08:20)
[2021-10-21] MEDS: losartan 50 mg Tablet 100 MG PO (08:21)
[2021-10-21] MEDS: aspirin 81 mg EC Tablet PO (08:22)
[2021-10-21] MEDS: apixaban 5 mg Tablet PO (08:22)
[2021-10-21] MEDS: atorvastatin 40 mg Tablet 20 MG PO (08:22)
[2021-10-21] MEDS: hydroxychloroquine 200 mg Tablet PO (08:23)
[2021-10-21] MEDS: oxyCODONE 5 mg IR Tab/Cap PO ×2 (08:26→14:13)
[2021-10-21] MEDS: topiramate 25 mg Tablet PO (08:26)
[2021-10-21] MEDS: CELEcoxib 200 mg Capsule PO (08:27)
--- NOTE | 2021-10-21 12:17 | P.DS_ITS ---
Discharge Providers Date of Admission: 10/20/21 08:32 Date of Discharge: October 21, 2021 Attending Provider at Admission: Aron Stokes MD Attending Provider at Discharge: Aron Stokes MD Primary Care Provider: Isauro Lamb MD Diagnoses at Discharge Discharge Diagnosis (1) Status post right hip replacement: Status: Acute (2) Avascular necrosis of bone of right hip: Status: Resolved (3) History of DVT of lower extremity: Status: Acute Permanent problem details: all in the left leg--- has been on Eliquis since that time Reason for Visit Reason for Visit: avascular necrosis of bone M87.00 Hospital Course Hospital Course The patient tolerated surgery well. They remained hemodynamically stable. They was begun on her Eliquis on the first postoperative day and treated with sequential compression dressings for DVT prophylaxis. The patient was mobilized with therapy beginning the day of surgery and by the first postoperative day independent with the walker. As the pain was adequately controlled and they were fully mobile they were discharged home. Physical Exam Narrative: On the day of discharge the hip incision was clean. The incision was free of drainage. They had no particular swelling about the thigh or dis julio. No distal neurovascular deficits were noted. Discharge Data Studies Completed and Pending Completed Studies During Hospitalization Category Date Time Status XR hip RT 1V wo/[place] [id number] Routine Exams 10/20/21 09:24 Completed Pending at discharge Category Date Time Status Pathology: Surgical [PTH] Routine Pth 10/21/21 09:30 Received Radiology Impressions Hip X-Ray 10/20/21 09:24 IMPRESSION: 1. Right hip prosthesis in place as noted. Laboratory Results Hgb 13.1 g/dL (11.5-15.3) 10/21/21 02:45 Vitals Last Vital Signs Temp 98.5 F 10/21/21 08:00 Pulse 83 10/21/21 12:00 Resp 12 10/21/21 12:00 BP 123/81 10/21/21 12:00 Pulse Ox 97 10/21/21 12:00 Discharge Plan Discharge Patient Disposition: Home Condition: Stable Prescriptions: New oxycodone 5 mg Tablet 5 mg PO Q4H PRN (Reason: Moderate Pain) 7 Days Qty: 40 0RF acetaminophen 500 mg Tablet 1,000 mg PO Q8H 14 Days Qty: 84 0RF celecoxib 200 mg Capsule 200 mg PO Q12H 14 Days Qty: 28 0RF gabapentin 300 mg Capsule 300 mg PO BID 7 Days Qty: 14 0RF Continued losartan 100 mg tablet 100 mg PO DAILY 90 Days Qty: 90 3RF ascorbic acid (vitamin C) 500 mg tablet 250 mg PO DAILY 0RF aspirin [Adult Aspirin Regimen] 81 mg tablet,delayed release (DR/EC) 81 mg PO DAILY 0RF calcium carbonate 500 mg calcium (1,250 mg) capsule 500 mg PO DAILY 0RF topiramate 25 mg tablet 25 mg PO DAILY 0RF pravastatin 40 mg tablet 40 mg PO DAILY 0RF Eliquis 5 mg tablet 5 mg PO BID 0RF glucosamine-chondroitin 900 mg tablet 500 mg PO BID 0RF furosemide 40 mg tablet 40 mg PO QAM PRN (Reason: Edema) 0RF potassium chloride 20 mEq packet 20 meq PO DAILY PRN (Reason: with lasix) 0RF acyclovir 400 mg tablet 400 mg PO DAILY PRN (Reason: Pain, Mild) 0RF hydroxychloroquine 200 mg tablet See Rx Instructions PO DAILY Qty: 135 1RF Rx Instructions: alternate 1 tab daily with 2 tabs PO daily; mycophenolate mofetil [CellCept] 500 mg tablet 500 mg PO BID 30 Days Qty: 180 1RF prednisone 5 mg tablet 5 mg PO DAILY Qty: 90 1RF tacrolimus 1 mg capsule 2 mg PO Q12H Qty: 360 1RF metoprolol succinate 25 mg tablet extended release 24 hr 12.5 mg PO .QPM Qty: 45 3RF Discontinued hydrocodone-acetaminophen 5-325 mg tablet 5 tab PO PRN 0RF Discharge Orders: Discharge Order (Routine); Ordered 10/21/21 Ordered By: Aron Stokes Other Ambulatory Orders: DME: [facility] (Order) Location: None Selected Ordered By: Aron Stokes Referrals: Silvestre Campbell FNP [Physician Vice President Process] - 10/24/21 9:00 am Aron Stokes MD [Physician] - Discharge Diet: Advance as tolerated Discharge Activity: Limit activity as instructed Patient Instructions: Opioid Safety Activity Restrictions/Additional Instructions: Okay to shower. No soaking incision in tub Apply FirstIce up to 20 min/hr for pain and swelling Take Celebrex twice a day for the next 15 days for pain , discontinue other anti-inflammatories Take Neurontin twice a day for 7 days. Take Tylenol 500mg (up to 2 tabs) 3 times a day for mild pain Take oxycodone for breakthrough pain. Exercises per physical therapy. May weight-bear as tolerated on total hip arthroplasty IF HAVE ANY PROBLEMS OR QUESTIONS CALL HOSPITAL GEAR CUTTING MACHINE OPERATOR AT AND ASK TO HAVE DR. AHSAN SANDERS. Discharge Attestations Time Spent in Discharge Care*: other Quality Metrics Clinical Quality Measures [ No reported AMI, CVA or VTE this stay] Coding Level of Care Code Acute [facility] note Diagnoses Status post right hip replacement Z96.641 Avascular necrosis of bone of right hip M87.051 History of DVT of lower extremity Z86.718
== END 2021-10-21 15:40 | disposition home or self-care (01) ==
LOC: MEDSURG 08:34
PROVIDERS: Admitting Provider Orthopaedic Surgery; PCP Family Medicine; Visit Provider Orthopaedic Surgery
PROC: (CPT 27130; principal; 2021-10-20 07:00)
DX: M16.11 Unilateral primary osteoarthritis, right hip (principal); M87.051 Idiopathic aseptic necrosis of right femur; R26.81 Unsteadiness on feet; Z86.73 Personal history of transient ischemic attack (TIA), and cerebral infarction without residual deficits; Z86.718 Personal history of other venous thrombosis and embolism; M32.9 Systemic lupus erythematosus, unspecified
CPT/HCPCS: 27130; 36415; 73501; 85018; 88305; 88311; 97116; 97161; 97165; 97530; C1776; G0378; J0690; J1580; J2250; J2270; J2405; J2704; J7030; J7507; J7512

== ENCOUNTER 2021-11-06 09:50 | Outpatient (RCR) | payer OTHER, SELFPAY | END 2021-11-27 23:59 | disposition home or self-care (01) | LOC: SPT 09:50 | PROVIDERS: PCP Family Medicine; Referring Provider Orthopaedic Surgery; Visit Provider Orthopaedic Surgery | DX: Z47.1 Aftercare following joint replacement surgery (principal); Z96.641 Presence of right artificial hip joint; M32.9 Systemic lupus erythematosus, unspecified; Z86.73 Personal history of transient ischemic attack (TIA), and cerebral infarction without residual deficits | CPT/HCPCS: 97110; 97161 ==

== ENCOUNTER → 2021-11-13 08:15 | Outpatient (BNVA) | payer OTHER, SELFPAY | PROVIDERS: PCP Family Medicine; Visit Provider Nurse Practitioner Family | DX: Z96.641 Presence of right artificial hip joint (principal) | CPT/HCPCS: 73502 ==

== ENCOUNTER 2021-11-28 06:00 | Outpatient (RCR) | payer OTHER, SELFPAY | END 2021-12-28 23:59 | disposition home or self-care (01) | LOC: SPT 06:00 | PROVIDERS: PCP Family Medicine; Referring Provider Orthopaedic Surgery; Visit Provider Orthopaedic Surgery | DX: Z47.1 Aftercare following joint replacement surgery (principal); Z96.641 Presence of right artificial hip joint; M32.9 Systemic lupus erythematosus, unspecified; Z86.73 Personal history of transient ischemic attack (TIA), and cerebral infarction without residual deficits | CPT/HCPCS: 97110 ==

== ENCOUNTER 2021-12-29 06:00 | Outpatient (RCR) | payer OTHER, SELFPAY | END 2022-01-28 23:59 | disposition home or self-care (01) | LOC: SPT 06:00 | PROVIDERS: PCP Family Medicine; Referring Provider Orthopaedic Surgery; Visit Provider Orthopaedic Surgery | DX: M32.9 Systemic lupus erythematosus, unspecified (principal); Z96.641 Presence of right artificial hip joint; Z86.73 Personal history of transient ischemic attack (TIA), and cerebral infarction without residual deficits | CPT/HCPCS: 97110 ==

== ENCOUNTER → 2022-02-03 13:34 | Outpatient (BNVA) | payer OTHER, SELFPAY | PROVIDERS: PCP Family Medicine; Visit Provider Internal Medicine Rheumatology | DX: Z79.899 Other long term (current) drug therapy (principal); M32.14 Glomerular disease in systemic lupus erythematosus; R80.9 Proteinuria, unspecified; Z96.641 Presence of right artificial hip joint | CPT/HCPCS: 80076; 80197; 81001; 82565; 82570; 84156; 85025; 86140 ==

== ENCOUNTER → 2022-02-26 11:04 | Outpatient (BNVA) | payer SELFPAY | PROVIDERS: PCP Family Medicine; Visit Provider Nurse Practitioner Women's Health | DX: Z01.419 Encounter for gynecological examination (general) (routine) without abnormal findings (principal) | CPT/HCPCS: 87624 ==

== ENCOUNTER 2022-04-17 09:24 | Outpatient (CLI) | payer OTHER, SELFPAY ==
--- NOTE | 2022-04-17 09:39 | MM_ITS ---
WS: [id number] VIEWS: MLO and CC views both breasts. 3D digital tomosynthesis is also included in this exam. No priors. Findings: There was no sign of mass, architectural distortion or suspicious calcification in either breast. He terogeneously dense MM/[place] [id number] Impression: BI-RADS: 2-Benign FOLLOW-UP: 1 Year Follow-up This mammogram was also analyzed by the Computer Aided Detection System R2 Imag e Accounting Systems Analyst.
== END 2022-04-17 09:25 | disposition home or self-care (01) ==
LOC: RAD 09:25
PROVIDERS: PCP Family Medicine; Visit Provider Nurse Practitioner Women's Health
DX: Z12.31 Encounter for screening mammogram for malignant neoplasm of breast (principal)
CPT/HCPCS: 77063; 77067

== ENCOUNTER → 2022-06-09 14:28 | Outpatient (BNVA) | payer OTHER, SELFPAY | PROVIDERS: PCP Family Medicine; Visit Provider Internal Medicine Rheumatology | DX: Z79.899 Other long term (current) drug therapy (principal); M32.14 Glomerular disease in systemic lupus erythematosus | CPT/HCPCS: 80076; 80197; 81001; 82565; 82570; 84156; 85025; 85651; 86140 ==

== ENCOUNTER → 2022-10-13 14:35 | Outpatient (BNVA) | payer OTHER, SELFPAY | PROVIDERS: PCP Family Medicine; Visit Provider Internal Medicine Rheumatology | DX: M32.9 Systemic lupus erythematosus, unspecified (principal); Z79.899 Other long term (current) drug therapy | CPT/HCPCS: 36415; 80076; 82565; 85025; 86140 ==

== ENCOUNTER 2023-03-11 10:29 | Outpatient (CLI) | payer OTHER, SELFPAY ==
[2023-03-11 11:05] LABS: Basophils % 0.6 %; Eosinophils # 0.1 10^3/uL (0.0-0.8); Eosinophils % 0.9 %; Hematocrit 39.2 % (36-47); Lymphocytes # 1.8 10^3/uL (0.8-4.8); Lymphocytes % 33.6 %; Mean Corpuscular HGB Conc 34.4 g/dL (30-55); Mean Corpuscular Hemoglobin 30.1 pg (27-33); Mean Corpuscular Volume 87.5 fl (85-98); Mean Platelet Volume 10.1 fL (7.4-10.4); Monocytes # 0.3 10^3/uL (0.2-0.9); Monocytes % 5.5 %; Neutrophils # 3.19 10^3/uL (1.8-7.7); Nucleated Red Blood Cells % 0 %; Platelet Count 221 10^3/cmm (157-399); Red Blood Count 4.48 10^6/uL (3.85-5.65); Red Cell Distribution Width 13.1 % (12.1-15.1); White Blood Count 5.41 10^3/uL (3.29-11.43)
[2023-03-11 11:08] LABS: Protein Urine 1+ (Negative); Urine Appearance Cloudy (CLEAR); Urine Color Yellow (Yellow); pH Urine 6 (5-7)
[2023-03-11 11:11] LABS: Bilirubin Urine Neg (Negative); Blood Urine 3+ (Negative); Glucose Urine UA Norm (Normal); Ketones Urine Negative (Negative); Leukocyte Esterase Urine Negative (Negative); Nitrate Urine Negative (Negative); Urobilinogen Urine Norm (Negative)
[2023-03-11 11:41] LABS: Add Urine Culture? Yes; Bacteria Urine 2+ /hpf
[2023-03-11 11:49] LABS: Alanine Aminotransferase 19 U/L (0-33); Albumin Level 3.9 g/dL (3.5-5.2); Alkaline Phosphatase 68 U/L (35-105); Aspartate Amino Transferase 16 U/L (0-32); Globulin 2.5 g/dL (1.3-4.6); Total Bilirubin 0.4 mg/dL (0.15-1.2); Total Protein 6.4 g/dL (6.6-8.7)
[2023-03-11 11:51] LABS: Urine Creatinine 221 mg/dL (28-217)
[2023-03-11 11:52] LABS: Urine Protein Random 63 mg/dL
== END 2023-03-11 10:30 | disposition home or self-care (01) ==
PROVIDERS: PCP Family Medicine; Visit Provider Internal Medicine Rheumatology
DX: M32.14 Glomerular disease in systemic lupus erythematosus (principal); M32.9 Systemic lupus erythematosus, unspecified; Z79.899 Other long term (current) drug therapy
CPT/HCPCS: 80076; 80197; 81001; 82565; 82570; 84156; 85025; 86140

== ENCOUNTER → 2023-03-25 13:00 | Outpatient (BNVA) | payer OTHER, SELFPAY | PROVIDERS: PCP Family Medicine; Visit Provider Nurse Practitioner Women's Health | DX: Z79.899 Other long term (current) drug therapy (principal); Z01.419 Encounter for gynecological examination (general) (routine) without abnormal findings | CPT/HCPCS: 87624 ==

== ENCOUNTER → 2023-08-17 12:07 | Outpatient (BNVA) | payer OTHER, SELFPAY | PROVIDERS: PCP Family Medicine; Visit Provider Internal Medicine Rheumatology | DX: M32.9 Systemic lupus erythematosus, unspecified (principal); M32.14 Glomerular disease in systemic lupus erythematosus; Z79.899 Other long term (current) drug therapy | CPT/HCPCS: 36415; 80076; 80197; 82565; 85025; 86140 ==

== ENCOUNTER → 2024-01-24 11:59 | Outpatient (BNVA) | payer OTHER, SELFPAY | PROVIDERS: PCP Family Medicine; Visit Provider Internal Medicine Rheumatology | DX: M32.14 Glomerular disease in systemic lupus erythematosus (principal); Z79.899 Other long term (current) drug therapy | CPT/HCPCS: 36415; 80076; 80197; 82565; 85025; 85651; 86140 ==

== ENCOUNTER 2024-04-11 07:51 | Outpatient (CLI) | payer OTHER, SELFPAY ==
--- NOTE | 2024-04-11 08:00 | MM_ITS ---
WS: [id number] BILATERAL 3D TOMOSYNTHESIS DIGITAL SCREENING MAMMOGRAPHY WITH CAD CLINICAL INFORMATION: Z12.39 - Encounter for other screening for malignant neop... HISTORY: Screening mammogram. No current complaints. COMPARISON: 2021 TECHNIQUE: Bilateral CC and MLO views. FINDINGS: The breasts are composed of heterogeneous fibroglandular density tissue, which can limit the detectio n of small underlying mass lesions. No suspicious mass, asymmetry, calcifications, or architectural d istortion. No evidence of malignancy. MM/MM [facility] tomosynthesis [id number] IMPRESSION: DENSITY: The breasts are heterogeneously dense, which may obscure small masses. BI-RADS: 1 - Negative FOLLOW UP: 1 Year Follow-up Recommend return to annual screening mammography.
== END 2024-04-11 07:52 | disposition home or self-care (01) ==
LOC: RAD 07:51
PROVIDERS: PCP Family Medicine; Visit Provider Nurse Practitioner Women's Health
DX: Z12.31 Encounter for screening mammogram for malignant neoplasm of breast (principal); R92.333 Mammographic heterogeneous density, bilateral breasts
CPT/HCPCS: 77063; 77067

== ENCOUNTER → 2024-06-14 14:01 | Outpatient (BNVA) | payer OTHER, SELFPAY | PROVIDERS: PCP Family Medicine; Visit Provider Clinical Nurse Specialist Adult Health | DX: R50.9 Fever, unspecified (principal) | CPT/HCPCS: 87400 ==

== ENCOUNTER → 2024-10-25 16:13 | Outpatient (BNVA) | payer OTHER, SELFPAY | PROVIDERS: PCP Family Medicine; Visit Provider Internal Medicine Rheumatology | DX: Z79.899 Other long term (current) drug therapy (principal) | CPT/HCPCS: 36415; 80076; 82565; 85025; 85651; 86140 ==

== ENCOUNTER 2025-01-24 11:22 | Outpatient (CLI) | payer OTHER, SELFPAY ==
[2025-01-24 12:05] LABS: Hematocrit 33.2 % (36-47); Hemoglobin 11.10 g/dL (11.27-16.99); Mean Corpuscular HGB Conc 33.4 g/dL (30-55); Mean Corpuscular Hemoglobin 30.1 pg (27-33); Mean Corpuscular Volume 90.0 fl (85-98); Nucleated Red Blood Cells % 0 %; Platelet Count 177 10^3/cmm (157-399); Red Blood Count 3.69 10^6/uL (3.85-5.65); White Blood Count 6.20 10^3/uL (3.29-11.43)
[2025-01-24 12:20] LABS: Alanine Aminotransferase 7 U/L (0-33); Albumin Level 2.4 g/dL (3.5-5.2); Alkaline Phosphatase 53 U/L (35-105); Aspartate Amino Transferase 15 U/L (0-32); Globulin 2.1 g/dL (1.3-4.6); Total Protein 4.5 g/dL (6.6-8.7)
== END 2025-01-24 11:23 | disposition home or self-care (01) ==
PROVIDERS: PCP Family Medicine; Visit Provider Internal Medicine Rheumatology
DX: Z79.899 Other long term (current) drug therapy (principal)
CPT/HCPCS: 36415; 80076; 82565; 85025; 85651; 86140

== ENCOUNTER → 2025-02-05 13:50 | Outpatient (BNVA) | payer OTHER, SELFPAY | PROVIDERS: PCP Family Medicine; Visit Provider Internal Medicine Rheumatology | DX: Z79.899 Other long term (current) drug therapy (principal); M32.14 Glomerular disease in systemic lupus erythematosus | CPT/HCPCS: 36415; 81001; 82565; 82575; 84156; 84520; 87086 ==

== ENCOUNTER 2025-02-16 08:47 | Outpatient (CLI) | payer OTHER, SELFPAY ==
[2025-02-16 10:03] LABS: Glucose Urine UA Negative (Normal); Nitrate Urine Negative (Negative); Specific Gravity, Urine 1.024 (1.005-1.030)
[2025-02-16 10:05] LABS: Add Urine Microscopic? YES
[2025-02-16 10:22] LABS: UA Slide Review UA Slide Review Perf
[2025-02-16 10:24] LABS: Creatinine Urine, Random 182 mg/dL (28-217)
[2025-02-16 10:34] LABS: Blood Urea Nitrogen 25 mg/dL (6-20)
[2025-02-16 12:21] LABS: Total Protein, Random Urine > 200.0 mg/dL (0.0-20.0)
== END 2025-02-16 08:48 | disposition home or self-care (01) ==
LOC: LAB 08:51
PROVIDERS: PCP Family Medicine; Visit Provider Internal Medicine Rheumatology
DX: M32.14 Glomerular disease in systemic lupus erythematosus (principal)
CPT/HCPCS: 36415; 81001; 82565; 82575; 84156; 84520; 86160; 87086

== ENCOUNTER → 2025-02-22 09:41 | Outpatient (BNVA) | payer OTHER, SELFPAY | PROVIDERS: PCP Family Medicine; Visit Provider Family Medicine | DX: Z13.6 Encounter for screening for cardiovascular disorders (principal); E55.9 Vitamin D deficiency, unspecified; Z79.52 Long term (current) use of systemic steroids | CPT/HCPCS: 80061; 82306; 83036 ==

== ENCOUNTER 2025-04-04 08:32 | Outpatient (CLI) | payer OTHER, SELFPAY ==
[2025-04-04 09:30] LABS: Hematocrit 36.3 % (36-47); Hemoglobin 11.80 g/dL (11.27-16.99); Mean Corpuscular HGB Conc 32.5 g/dL (30-55); Mean Corpuscular Hemoglobin 29.2 pg (27-33); Mean Corpuscular Volume 89.9 fl (85-98); Nucleated Red Blood Cells % 0 %; Platelet Count 236 10^3/cmm (157-399); Red Blood Count 4.04 10^6/uL (3.85-5.65); White Blood Count 9.28 10^3/uL (3.29-11.43)
[2025-04-04 09:50] LABS: Glucose Urine UA Negative (Normal); Nitrate Urine Negative (Negative); Specific Gravity, Urine 1.018 (1.005-1.030)
[2025-04-04 09:55] LABS: Alanine Aminotransferase 15 U/L (0-33); Albumin Level 3.0 g/dL (3.5-5.2); Alkaline Phosphatase 57 U/L (35-105); Aspartate Amino Transferase 14 U/L (0-32); Globulin 1.7 g/dL (1.3-4.6); Total Protein 4.7 g/dL (6.6-8.7)
== END 2025-04-04 08:33 | disposition home or self-care (01) ==
PROVIDERS: PCP Family Medicine; Visit Provider Internal Medicine Rheumatology
DX: M32.14 Glomerular disease in systemic lupus erythematosus (principal); Z79.899 Other long term (current) drug therapy
CPT/HCPCS: 36415; 80076; 81001; 82565; 84156; 85025; 85651; 86140; 87086

== ENCOUNTER 2025-04-12 08:56 | Outpatient (CLI) | payer OTHER, SELFPAY ==
--- NOTE | 2025-04-12 09:20 | MM_ITS ---
WS: [id number] BILATERAL SCREENING DIGITAL TOMOSYNTHESIS MAMMOGRAM WITH CAD HISTORY: Z12.39 - Encounter for other screening for malignant neop... COMPARISON: 04/11/2024, 04/17/2022 Bilateral CC and MLO views with tomosynthesis and synthetic mammography submitted. Computer aided detection analyzed. Breast composition: The breasts are heterogeneously dense, which may obscure small masses. No suspicious masses, microcalcifications or architectural distortion. MM/MM [facility] tomosynthesis [id number] IMPRESSION: BI-RADS: 1 - Negative FOLLOW UP: 1 Year Follow-up
== END 2025-04-12 08:57 | disposition home or self-care (01) ==
LOC: RAD 08:58
PROVIDERS: PCP Family Medicine; Visit Provider Nurse Practitioner Women's Health
DX: Z12.31 Encounter for screening mammogram for malignant neoplasm of breast (principal); R92.333 Mammographic heterogeneous density, bilateral breasts
CPT/HCPCS: 77063; 77067

== ENCOUNTER 2025-04-25 11:44 | Emergency (ER) | payer OTHER, SELFPAY ==
--- NOTE | 2025-04-25 11:46 | XRR_ITS ---
PROCEDURE INFORMATION: Exam: XR Left Hand Exam date and time: 04/25/2025 12:07 PM Age: 44 years old Clinical indication: Injury or trauma; Fall; Blunt trauma (contusions or hematomas); Hand; Left TECHNIQUE: Imaging protocol: Radiologic exam of the left hand. Views: 3 or more views. COMPARISON: No relevant prior studies available. FINDINGS: Bones/joints: Comminuted intra-articular fracture of the head and proximal metaphysis of the 5th proximal phalanx on the left hand. Dorsal angulation of approximately 90 degrees and approximately 90 degrees of lateral rotatio. No dislocation. Normal bone mineralization. Soft tissues: Moderate soft tissue swelling at the proximal left 5th finger. No soft tissue emphysema. No radiopaque foreign body. XR/XR hand LT min 3V* [id number] IMPRESSION: 1. Comminuted intra-articular fracture of the head and proximal metaphysis of the 5th proximal phalanx on the left hand. Dorsal angulation of approximately 90 degrees and approximately 90 degrees of lateral rotatio 2. Moderate soft tissue swelling at the proximal left 5th finger. 3. Incidental/nonacute findings are listed in the report.
--- OUTSIDE RECORDS SUMMARY | 2025-04-25 11:49 | XMS_ITS | Clinical Summary ---
Author Organization [place] [facility] [facility] Address [address] [place] [address] Phone Care Team Providers Care Postdoctoral Scholar Name Role Phone Unavailable Primary Care Provider Unavailabl e Encounters Date Type Department Care Team Description 04/06/2025 Telephone [place] [employer], [facility] [address] [place] [address] Angela Cruz MD 04/06/2025 Transcribe Orders [place] [facility], 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 Dx) from Last 3 Months Social History Tobacco Use Types Packs/Day Years Used Date Smoking Tobacco: Never Assessed Comments Unknown Sex and Gender Information Value Date Recorded Sex Assigned at Not on file Legal Sex Female 1:19 PM EST Gender Identity Not on file Sexual Orientation Not on file Plan of Treatment Upcoming Encounters Date Type Department Care Team (Late st Contact Info) Description 09/11/2025 1:00 PM CDT Office Visit [facility] [employer] [address] [place] [address] Angela Cruz MD [address] [place] [address] Health Maintenance Due Date Last Done Comments Pneumococcal Vaccine: Peds ( 0 to 5 Years) and At-Risk Patients (6 to 49 Years) (1 of 2 - PCV) 2000 Hepatitis B Vaccine (2 of 3 - Hep B Twinrix 3-dose series) 11/10/2007 10/13/2007 Influenza Vaccine (#1) 2025 [facility] ([id number])
--- OUTSIDE RECORDS SUMMARY | 2025-04-25 11:49 | XMS_ITS | Encounter Summary ---
Author Organization [facility] Address [address] [address] Phone Care Team Providers Care Supply Chain Intern Name Role Phone Unavailable Primary Care Provider Unavailabl e Reason for Referral * Consultation (Routine) - Authorized Specialty Diagnoses / Procedures Referred By Contac t Referred To Contact Nephrology Diagnoses Glomerular disease in systemic lupus erythematosus (HCC) Hay Rios MD [address] [place] [address] Phone: tel: fax: Angela Cruz MD [address] [address] Phone: tel: fax: Referral ID Status Reason Start Date Expiration Date Visits Requested Visits Authorized [id number] Authorized Consult and Treat 04/06/2025 04/06/2026 1 1 BREEDER Encounter Details Date Type Department Care Team (Late st Contact Info) Description 04/06/2025 Transcribe Orders [facility] [address] [facility] [address] [place] [address] Hay Rios MD [address] [place] [address] Glomerular disease in systemic lupus erythematosus (HCC) (Primary Dx) Social History Tobacco Use Types Packs/Day Years Used Date Smoking Tobacco: Never Assessed Comments Unknown Sex and Gender Information Value Date Recorded Sex Assigned at Not on file Legal Sex Female 1:19 PM EST Gender Identity Not on file Sexual Orientation Not on file documented as of this encounter Plan of Treatment Upcoming Encounters Date Type Department Care Team (Late st Contact Info) Description 09/11/2025 1:00 PM CDT Office Visit [facility], [facility] [address] [place] [phone] Angela Cruz MD [address] [facility] [address] [place] [id number] Scheduled Referrals Name Type Priority Associated Diagnoses Orde r Schedule Ambulatory referral to Nephrology Outpatient Referral Routine Glomerular disease in systemic lupus erythematosus (HCC) Expected: 04/06/2025, Expires: 05/06/2026 documented as of this encounter Visit Diagnoses Diagnosis Glomerular disease in systemic lupus erythematosus (HCC)- Primary documented in this encounter
[2025-04-25 11:58] VITALS: BP 132/88; PULSE 78; TEMP 36.8; O2SAT 100; BMI 24.2
--- NOTE | 2025-04-25 12:31 | ED_ITS ---
HPI - Fall General: Chief Complaint: Fall Stated Complaint: fall, chin lac, L hand 5th digit deformity Time Seen by Provider: 04/25/25 12:07 Source: patient Mode of arrival: ambulatory Limitations: no limitations History of Present Illness: 44-year-old female states that she chavez ed and fell just prior to arrival. States she landed on her left hand has obvious deformity to left pinky finger. States she also hit her chin she denies any facial pain denies any head or neck pain denies any loss conscious denies any pain elsewhere besides her left pinky she rates a 3 out of 10. Related Data Home Medications ?Medication ?Instructions ?Recorded ?Confirmed antiarthritic combination no.2 900 500 mg PO BID 07/1004/05/25 mg tablet (glucosamine-chondroitin) aspirin 81 mg tablet,delayed 81 mg PO DAILY 07/10/19 1 06/05/24 release (Adult Aspirin Regimen) calcium carbonate 500 mg PO DAILY 07/10/1911/22 furosemide 40 mg tablet 40 mg PO QAM PRN Edema 08/0704/05/25 multivitamin with minerals-folic tab PO 04/05/2504/05 acid 120 mcg chewable tablet (Women's Multivitamin Gummies) mv-min-vit C-ascorbate tab PO 04/05/25 04/05/25 [id number] 333 mg-1.7 mg chewable tablet (Airborne (ascorbate sodium)) Previous Rx's ?Medication ?Instructions ?Recorded acyclovir 400 mg tablet 400 mg PO QID PRN Pain, Mild #30 12/28/24 tabs prednisone 20 mg tablet See Rx Instructions PO DAILY joint 02/06/25 pain flare #90 tabs albuterol sulfate 90 mcg/actuation 2 puff inhalation Q 6H PRN 02/22/25 aerosol inhaler (ProAir HFA) shortness of breath or wh eezing #8.5 grams apixaban 5 mg tablet (Eliquis) See Rx Instructions .Ro alber 02/26/25 .COMPLEX #180 tabs cholecalciferol (vitamin D3) 50 50 mcg PO DAILY #30 ca ps 03/05/25 mcg (2,000 unit) capsule losartan 100 mg tablet 100 mg PO DAILY 90 days #90 tabs 03/28/25 metoprolol succinate 25 mg 25 mg PO .QPM #30 tabs 03/01 02/22 tablet,extended release 24 hr pravastatin 40 mg tablet See Rx Instructions .Route 1 .COMPLEX #90 tabs topiramate 25 mg tablet See Rx Instructions .Route 1 .COMPLEX #90 tabs hydroxychloroquine 200 mg tablet See Rx Instructions P O DAILY #135 03/30/25 tabs mycophenolate mofetil 500 mg 1,500 mg (3 x 500 mg) PO BID #180 03/30/25 tablet (CellCept) tabs prednisone 10 mg tablet See Rx Instructions .Route 1 06/03/24 .COMPLEX joint pain #90 tabs hydrocodone 5 mg-acetaminophen 325 1 tab PO Q6H PRN pa in #14 tabs 04/25/25 mg tablet Allergies Allergy/AdvReac Type Severity Reaction Status Date / Time Sulfa (Sulfonamide Allergy Intermediate red dots Verified 04/25/25 12:04 Antibiotics) all over body lemon Allergy Unknown Unknown Verified 04/25/25 12:04 PFSH ED PFSH: Medical History (Updated 04/25/25 @ 13:23 by Kennedy Shook MD) SLE (systemic lupus erythematosus) Avascular necrosis of bone of right hip No pertinent past medical history neghx: dm,thyroid PCP: Dr. 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 Stokes at [facility] S/P laparoscopy (04/09/20) Performed at time of endometrial ablation. [place] [facility] [place] Found extensive adhesions throughout the abdomen. S/P endometrial ablation (04/09/20) Hysteroscopy with NovaSure endometrial ablation. Dx: Menorrhagia, iron deficiency anemia. [place] [facility] [place] History of abdominal surgery placement of feeding tube; later removed Family History Grandmother Colon cancer maternal--dx age unknown Cancer PGM-- Pancreatic Grandfather Diabetes Maternal Heart disease Paternal and Maternal Hypercholesteremia Maternal and Paternal Hypertension Maternal Family/Other Colon cancer Maternal Uncle--dx age unknown Mother Thyroid disease Denies family history of Ovarian cancer Breast cancer Uterine cancer Stroke Social History Smoking and tobacco/nicotine status: former use of tobacco/nicotine Alcohol intake: never Substance/Drug Use: never Physical Exam Const: COMMON NORMALS: no acute distress, patient oriented x3 and healthy appearing HENMT: COMMON NORMALS: normocephalic and atraumatic HEAD & SCALP: normocephalic and atraumatic OTHER: Abrasion noted to chin Neck/C-Spine: COMMON NORMALS: full ROM and supple Chest: COMMONS NORMALS: normal inspection of the chest Resp: COMMON NORMALS: normal respiratory effort Cardio: COMMON NORMALS: regular rate RATE: regular rate Extremity: COMMON NORMALS: full ROM NARRATIVE EXTREMITY EXAM: Obvious deformity left pinky finger Neuro: COMMON NORMALS: patient oriented x3, moves all extremities and no focal motor deficits Psych: COMMON NORMALS: mental status grossly normal, Normal thought process present and cooperative THOUGHT PROCESS: Normal thought process present Skin: COMMON NORMALS: no rashes or lesions noted and no wounds GENERAL SKIN EXAM: no rashes or lesions noted Procedures Orthopedic Joint Reduction Joint #1: Time Out Performed: Yes Side: left Joint Reduction Location: finger Analgesia: nerve block Local Anesthesia: bupivacaine 0.5% Amount of anesthesic used (mL): 10 Technique used: traction/counter-traction Post-reduction neuro exam: intact Post-reduction vascular: intact Post Reduction X-Ray Obtained: Yes Post Reduction X-Ray Results: reduced Splint Applied: Yes Patient Tolerated Procedure: well Course Vital Signs: Vital signs: Vital Signs Temperature 98.2 F 04/25/25 11:58 Pulse Rate 78 04/25/25 11:58 Blood Pressure 132/88 04/25/25 11:58 Pulse Oximetry 100 04/25/25 11:58 Oxygen Delivery Me thod Room Air 04/25/25 11:58 MDM - Fall Medical Decision Making 44-year-old female presents after a fall has obvious abnormality to left finger abrasion to her chin denies any loss conscious. Patient had no signs of any major head injuries here she has no headache no loss of conscious does not require any head imaging. X-ray of her finger did show a comminuted proximal fracture of the little finger along with a dislocation. I did do a ring block and reduced her finger placed her in a ulnar gutter I spoke to Dr. Bailon who reviewed images and will follow-up outpatient she is return if worsening she understands agrees to plan Medical Records I reviewed the patient's medical records. Lab Data I reviewed the patient's lab results. Radiology Impressions Hand X-Ray 04/25/25 11:46 IMPRESSION: 1. Comminuted intra-articular fracture of the head and proximal metaphysis of the 5th proximal phalanx on the left hand. Dorsal angulation of approximately 90 degrees and approximately 90 degrees of lateral rotatio 2. Moderate soft tissue swelling at the proximal left 5th finger. 3. Incidental/nonacute findings are listed in the report. All radiology interpretation(s) finalized by discharge Discharge Plan Discharge Patient Disposition: Home Clinical Impression: Closed dislocation of left little finger Finger fracture, left Qualifiers: Encounter type: initial encounter Finger: little finger Fracture type: closed Phalanx: proximal Fracture alignment: displaced Qualified Code(s): S62.617A - Displaced fracture of proximal phalanx of left little finger, initial encounter for closed fracture Condition: Stable Prescriptions: New hydrocodone-acetaminophen 5-325 mg tablet 1 tab PO Q6H PRN (Reason: pain) Qty: 14 0RF No Action aspirin [Adult Aspirin Regimen] 81 mg tablet,delayed release (DR/EC) 81 mg PO DAILY calcium carbonate 500 mg calcium (1,250 mg) capsule 500 mg PO DAILY glucosamine-chondroitin 900 mg tablet 500 mg PO BID furosemide 40 mg tablet 40 mg PO QAM PRN (Reason: Edema) Airborne (ascorbate sodium) 333-1.7 mg tablet,chewable PO multivit with min-folic acid [Women's Multivitamin Gummies] 120 mcg tablet,chewable PO albuterol sulfate [ProAir HFA] 90 mcg/actuation HFA aerosol inhaler 2 puff inhalation Q6H PRN (Reason: shortness of breath or wheezing) Qty: 8.5 6RF acyclovir 400 mg tablet 400 mg PO QID PRN (Reason: Pain, Mild) Qty: 30 3RF prednisone 20 mg tablet See Rx Instructions PO DAILY Qty: 90 0RF Rx Instructions: take 60mg daily for 7days then stay on 40 daily Eliquis 5 mg tablet See Rx Instructions .ROUTE .COMPLEX Qty: 180 3RF Dose Instruction: TAKE 1 TABLET BY MOUTH TWICE DAILY Rx Instructions: TAKE 1 TABLET BY MOUTH TWICE DAILY cholecalciferol (vitamin D3) 50 mcg (2,000 unit) capsule 50 mcg PO DAILY Qty: 30 6RF losartan 100 mg tablet 100 mg PO DAILY 90 Days Qty: 90 3RF metoprolol succinate 25 mg tablet extended release 24 hr 25 mg PO .QPM Qty: 30 6RF pravastatin 40 mg tablet See Rx Instructions .ROUTE .COMPLEX Qty: 90 3RF Dose Instruction: TAKE ONE TABLET BY MOUTH AT BEDTIME Rx Instructions: TAKE ONE TABLET BY MOUTH AT BEDTIME topiramate 25 mg tablet See Rx Instructions .ROUTE .COMPLEX Qty: 90 3RF Dose Instruction: TAKE ONE TABLET BY MOUTH EVERY DAY Rx Instructions: TAKE ONE TABLET BY MOUTH EVERY DAY hydroxychloroquine 200 mg tablet See Rx Instructions PO DAILY Qty: 135 1RF Rx Instructions: alternate 1 tab daily with 2 tabs PO daily; mycophenolate mofetil [CellCept] 500 mg tablet 1,500 mg PO BID Qty: 180 1RF prednisone 10 mg tablet See Rx Instructions .Route .COMPLEX Qty: 90 2RF Rx Instructions: 3 tabs daily [id number], then 2 tabs QD [id number], then stay on 1 tab daily Discharge Orders: Discharge ED (Routine); Ordered 04/25/25 Ordered By: Kennedy Shook Referrals: Oni Bailon DO [Physician, Orthopedics] - 4-7 days Isauro Lamb MD [Primary Care Provider, Family Practice] Discharge Diet: Advance as tolerated Discharge Activity: Resume usual activity Patient Instructions: Finger Fracture (ED), Finger Dislocation (ED), Opioid Safety Print Language: Malay Coding Level of Care Code ED Head Screen Worker for Reji Rao
--- NOTE | 2025-04-25 12:40 | XRR_ITS ---
PROCEDURE INFORMATION: Exam: XR Left Hand Exam date and time: 04/25/2025 12:53 PM Age: 44 years old Clinical indication: Pain; Left; RT hand; Additional info: Post reduction TECHNIQUE: Imaging protocol: Radiologic exam of the left hand. Views: 3 or more views. COMPARISON: CR XR hand LT min 3V* [id number] 04/25/2025 12:07 PM FINDINGS: Bones/joints: Interval placement of overlying cast material that can obscure fine bony detail. Interval closed reduction of the acute, comminuted intra-articular fracture of the base/proximal metaphysis of the 5th proximal phalanx on the left hand. Improved alignment with residual mild dorsal angulation of the distal fracture fragment. No dislocation. Normal bone mineralization. No joint effusion. Joint spaces are maintained. Soft tissues: Stable moderate soft tissue swelling at the proximal left 5th finger. No soft tissue emphysema. No radiopaque foreign body. XR/XR hand LT 2V [id number] IMPRESSION: 1. Interval closed reduction of the acute, comminuted intra-articular fracture of the base/proximal metaphysis of the 5th proximal phalanx on the left hand. Improved alignment with residual mild dorsal angulation of the distal fracture fragment. 2. Stable moderate soft tissue swelling at the proximal left 5th finger. 3. Incidental/nonacute findings are listed in the report.
--- NOTE | 2025-04-26 07:33 | DCPLANNER ---
messaged ortho for er f/u
== END 2025-04-25 13:31 | disposition home or self-care (01) ==
PROVIDERS: Emergency Provider Emergency Medicine; PCP Family Medicine
DX: S62.617A Displaced fracture of proximal phalanx of left little finger, initial encounter for closed fracture (principal); Z79.82 Long term (current) use of aspirin; Z79.01 Long term (current) use of anticoagulants; Z87.891 Personal history of nicotine dependence; Z86.73 Personal history of transient ischemic attack (TIA), and cerebral infarction without residual deficits; W01.0XXA Fall on same level from slipping, tripping and stumbling without subsequent striking against object, initial encounter
CPT/HCPCS: 26725; 73120; 73130; 99283

== ENCOUNTER → 2025-05-01 07:51 | Outpatient (BNVA) | payer OTHER, SELFPAY | PROVIDERS: PCP Family Medicine; Visit Provider Student in an Organized Health Care Education/Training Program | DX: S62.617A Displaced fracture of proximal phalanx of left little finger, initial encounter for closed fracture (principal); S63.257A Unspecified dislocation of left little finger, initial encounter; W01.0XXA Fall on same level from slipping, tripping and stumbling without subsequent striking against object, initial encounter | CPT/HCPCS: 73130 ==

== ENCOUNTER 2025-05-04 11:16 | Day surgery (SDC) | payer OTHER, SELFPAY ==
[2025-05-04] VITALS (15 sets, daily range): BP systolic 137–167; BP diastolic 70–112; PULSE 75–97; RESP 12–18; TEMP 36.3–36.6; O2SAT 95–99; BMI 24.2
--- NOTE | 2025-05-04 11:51 | W.PM.OPSUD ---
Surgery/Procedure H&P Update DATE OF PROCEDURE: May 04, 2025 DATE H&P PERFORMED: 05/01/25 H&P UPDATE INFORMATION: I have reviewed H&P completed within last 30 days, I have examined patient prior to procedure and No changes to prior documentation PREOP DIAGNOSIS: Displaced angulated left small finger proximal phalanx fracture PRIMARY INDICATION FOR PROCEDURE: Displaced angulated left small finger proximal phalanx fracture PLANNED PROCEDURE: Operation Date: 05/04/25 14:05 Proposed Procedures p Left small finger proximal phalanx closed reduction percutaneous pinning versus ORIF(Left) - Oni Bailon DO
--- NOTE | 2025-05-04 11:59 | ANES.PREANE2 ---
Pre-Anesthetic Assessment Height/Weight: Height 5 ft 6 in Weight 150 lb Temp Pulse Resp BP Pulse Ox O2 Del Method 97.8 F 84 18 167/112 99 Room Air 05/04/25 11:45 05/04/25 11:45 05/04/25 11:45 05/04/25 11:45 05/04/25 11:45 05/04/25 11:45 Preop Diagnosis: Displaced angulated left small finger proximal phalanx fracture Operation Date: 05/04/25 12:45 Proposed Procedures p Left small finger proximal phalanx closed reduction percutaneous pinning versus ORIF(Left) - Oni Bailon, DO Was Beta Shyla taken within 24 hours: N/A Was Clonidine taken within 24 hours: N/A Social No alcohol and No tobacco Exam alert, oriented x 3, clear to auscultation bilaterally and regular rate & rhythm Airway Submandibular: within normal limits Cervical ROM: within normal limits Mallampati: Class II Dentition: false Anesthetic Plan ASA status: 3 Anesthesia: MAC Other: No prior issues with anesthesia NPO since yesterday evening History of hypertension on metoprolol and losartan Prior CVA in 2007 with right sided weakness. Patient drags right foot at baseline which resulted in a fall leading to current injury DVT multiple times, last episode was 2019. Eliquis taken last night Labs reviewed from 04/04/2025 and acceptable for procedure today Plan for MAC anesthesia with local [facility] surgeon Medications/Allergies Home Medications ?Medication ?Instructions ?Recorded ?Confirmed ?Last Taken ?Type antiarthritic combination no.2 900 500 mg PO BID 07/10/19 05/03/25 10/19/21 History mg tablet (glucosamine-chondroitin) aspirin 81 mg tablet,delayed 81 mg PO DAILY 07/10/19 05/03/25 05/03/25 History release (Adult Aspirin Regimen) calcium carbonate 500 mg PO DAILY 07/10/19 05/03/25 05/03/25 History furosemide 40 mg tablet 40 mg PO QAM PRN Edema 08/08/19 05/03/25 07/26/19 History acyclovir 400 mg tablet 400 mg PO QID PRN Pain, Mild #30 12/28/24 05/03/25 05/03/25 Rx tabs prednisone 20 mg tablet See Rx Instructions PO DAILY joint 02/06/25 05/03/25 Unknown Rx pain flare #90 tabs albuterol sulfate 90 mcg/actuation 2 puff inhalation Q6H PRN 02/22/25 05/03/25 05/03/25 Rx aerosol inhaler (ProAir HFA) shortness of breath or wheezing #8.5 grams cholecalciferol (vitamin D3) 50 50 mcg PO DAILY #30 caps 03/05/25 05/03/25 05/03/25 Rx mcg (2,000 unit) capsule losartan 100 mg tablet 100 mg PO DAILY 90 days #90 tabs 03/28/25 05/03/25 05/03/25 Rx metoprolol succinate 25 mg 25 mg PO .QPM #30 tabs 03/28/25 05/03/25 05/03/25 Rx tablet,extended release 24 hr mycophenolate mofetil 500 mg 1,500 mg (3 x 500 mg) PO BID #180 03/30/25 05/03/25 05/03/25 Rx tablet (CellCept) tabs prednisone 10 mg tablet See Rx Instructions .Route 04/03/25 05/03/25 05/03/25 Rx .COMPLEX joint pain #90 tabs multivitamin with minerals-folic 1 tab PO DAILY 04/05/25 05/03/25 05/03/25 History acid 120 mcg chewable tablet (Women's Multivitamin Gummies) mv-min-vit C-ascorbate 3 tab PO DAILY 04/05/25 05/03/25 05/03/25 History svl-igr-knw-herb 333 mg-1.7 mg chewable tablet (Airborne (ascorbate sodium)) hydrocodone 5 mg-acetaminophen 325 1 tab PO Q6H PRN pain 3 days #12 05/01/25 05/03/25 Unknown Rx mg tablet tabs apixaban 5 mg tablet (Eliquis) 5 mg PO DAILY 05/03/25 05/03/25 05/03/25 History hydroxychloroquine 200 mg tablet 200 mg PO DAILY 05/03/25 05/03/25 05/03/25 History pravastatin 40 mg tablet 40 mg PO DAILY 05/03/25 05/03/25 05/03/25 History topiramate 25 mg tablet 25 mg PO DAILY 05/03/25 05/03/25 05/03/25 History Allergies Allergy/AdvReac Type Severity Reaction Status Date / Time Sulfa (Sulfonamide Allergy Intermediate red dots Verified 05/01/25 08:14 Antibiotics) all over body lemon Allergy Unknown Unknown Verified 05/01/25 08:14 COUNTS INCLUDE 234 BEDS AT THE [facility] Anesthesia Medical History (Updated 05/03/25 @ 00:00 by ANGELA Obrien) SLE (systemic lupus erythematosus) Avascular necrosis of bone of right hip No pertinent past medical history neghx: dm,thyroid PCP: Dr. Lamb History of DVT of lower extremity (~2018) all in the left leg--- has been on Eliquis since that time History of CVA (cerebrovascular accident) (~2007) High risk medication use Labile hypertension Non-nephrotic range proteinuria improved Lupus nephritis, ISN/RPS class IV in remission Drug-related hair loss improved 01/2021 Other assisted (current) drug therapy Surgical History S/P hip replacement (~09/2021) RIGHT HIP- Dr. Stokes at [facility] S/P laparoscopy (04/09/20) Performed at time of endometrial ablation. Per[place] Dr. Munson [place] [facility] [place], [place]. Found extensive adhesions throughout the abdomen. S/P endometrial ablation (04/09/20) Hysteroscopy with NovaSure endometrial ablation. Dx: Menorrhagia, iron deficiency anemia. Performed by Dr. Munson at [facility] [place] in [place], [place]. History of abdominal surgery placement of feeding tube; later removed Family History Grandmother Colon cancer maternal--dx age unknown Cancer PGM-- Pancreatic Grandfather Diabetes Maternal Heart disease Paternal and Maternal Hypercholesteremia Maternal and Paternal Hypertension Maternal Family/Other Colon cancer Maternal Uncle--dx age unknown Mother Thyroid disease Denies family history of Ovarian cancer Breast cancer Uterine cancer Stroke Social History Smoking and tobacco/nicotine status: former use of tobacco/nicotine Alcohol intake: never Substance/Drug Use: never Data Anesthesia Cardiac Studies: Echocardiogram Ultrasound 05/28/20
--- NOTE | 2025-05-04 12:02 | SUR.PREOP ---
Patient comes into pre op and has bruising on her face on the right side and on chin. Her right eye is partially bruised/black. She has a scabbed area under her nose on the right side as well on arrival. Patients left pupil is dilated compared to right pupil and this is normal for her due to a stroke in 2008.
[2025-05-04] MEDS: acetaminophen 1,000 MG/100 ML PIGGYBACK 400 MG IV (12:05)
[2025-05-04 12:14] LABS: OR HCG Qualitative Urine Negative (Negative)
[2025-05-04] MEDS: ceFAZolin 2,000 MG in sodium chloride 0.9% (plus) 50 ML 100 MG IV (12:36)
[2025-05-04] MEDS: ROPivacaine 0.5% SDV 30 mL 150 MG INJECTION (13:09)
--- NOTE | 2025-05-04 13:31 | XR_ITS ---
WS: [id number] Exam: XR hand LT min 3V* [id number] Date/Time of Exam: 05/04/2025 1:32 PM Reason For Exam: OR PICS DLP: Comparison 05/01/2025. AP and lateral intraoperative C-arm images of the LEFT hand depict pin fixation involving a fracture at the base of the fifth proximal phalanx. Fracture alignment appears satisfactory for healing.
[2025-05-04] MEDS: fentaNYL 50 mcg/mL INJ 2mL IVP ×2 (13:41→13:57)
--- NOTE | 2025-05-04 13:49 | W.PM.BPON ---
Date of Procedure: 05/04/2025 Surgeon: Oni Bailon DO [employer] Driver(s): None Procedure(s) performed: Left hand small finger proximal phalanx closed reduction and percutaneous pinning Findings of the procedure(s): Underwent procedure as planned without issues or complications placed in ulnar gutter splint taken recovery stable condition Estimated blood loss: 1 mL Specimen(s) removed: None Post-operative diagnosis: Left small finger proximal phalanx fracture displaced angulated
--- NOTE | 2025-05-04 13:50 | P.OP_ITS ---
Operative Report Date of procedure: May 04, 2025 Pre-op diagnosis: Left small finger proximal phalanx fracture displaced and angulated Post-op diagnosis: Same Post-op findings: See operative report narrative Procedure done: Left hand small finger proximal phalanx closed reduction percutaneous pinning Implants: 3 x 0.45 K wires Surgeon: Oni Bailon DO Anesthesia: MAC and Local Estimated blood loss: 1 mL 26 minutes IV fluids: 700 mL Complications: None Findings: See op note Condition: stable Disposition: same day Brief History: Patient is a pleasant 44-year-old female sustained left small finger proximal phalanx fracture this significantly displaced and angulated attempted reduction emergency department continued follow-up was then done outpatient with orthopedics maintaining in splint unfortunately given the residual deformity as well as fracture continuing to fall and lose reduction we talked about her options in detail as far as nonoperative versus operative mention through shared decision making patient like to proceed with a left small finger proximal phalanx closed reduction percutaneous pinning versus open reduction internal fixation. Understanding risk of surgery she elects proceed with surgical intervention all questions answered at this time. Procedure: Patient seen eval in the preoperative holding area. Consent was reviewed and signed with patient. Correct extremities and subsequently marked. Patient was then seen evaluate by anesthesia once cleared for surgery patient was then brought back to the operative suite she was kept [facility]. Patient then underwent anesthesia per the AC department scrub anesthetized the left upper extremities then placed on an armboard all bony proximal small bowel well-padded patient appropriate secured to the bed. A nonsterile tourniquet was applied to the left upper arm. Patient then subsequently had the left upper extremity prepped and draped in standard orthopedic fashion. Final timeout performed. Patient received appropriate preoperative antibiotics. Esmarch tourniquet was used exsanguinate the left upper extremity tourniquet was insufflated 250 mmHg. I then subsequently brought in fluoroscopic imaging and evaluated the fracture pattern patient had significant displacement and angulation as well as hyperextension at the fracture site at the left small finger proximal phalanx fracture. At this point in time I did reduction maneuver under closed and was able to achieve satisfactory reduction in this position this was then held by my hand as well as with my advertising assistant and then subsequently utilized 0.45 K wire starting from proximal and handing this oblique to distal and radial. This then traversed this fracture site in standard oblique fashion and then performed another additional cross pin K wire fixation this was then performed starting distal ulnar and heading proximal radial this created a cross pin fixation at the fracture site while this was all held and reduced. At this point time once this was done I then added another additional screw and parallel fashion from the distal ulnar side and advance this once again parallel fashion to the proximal and radial side of the proximal phalanx into the fragment. This went into the recesses of the base of the proximal phalanx. I was able to bend the PIP joint with full motion as well as the MP joint had good range of motion. I then took the fluoroscopic imagings and was satisfactory pinning and fixation as well as stable fixation as I took this Fluoroscopy imaging moving the finger and fracture maintained its reduction and pin stability. This point, satisfied with my reduction I then subsequently bent cut and capped all 3 of these pins final x-rays were taken satisfactory reduction and then subsequently tourniquet deflated hemostasis satisfactory and then proceeded with placing a ulnar gutter splint that was bulky and well- padded. Patient was then awakened from anesthesia and taken to recovery in stable condition. Disposition: Patient taken recovery in stable condition with Toller procedure well without any issues or complications and ulnar gutter cast receive appropriate discharge directions as well as pain medication postoperatively will follow-up in orthopedic office in 2 weeks. Plan on leaving pins in place for 4 to 6 weeks.
[2025-05-04] MEDS: ondansetron 2 mg/ML SDV 2 mL 4 MG IVP (13:56)
[2025-05-04] MEDS: HYDROcodone-acetaminophen 5-325 mg Tablet 1 TAB PO (14:42)
--- NOTE | 2025-05-04 15:30 | ANE.PACU2 ---
Inpatient post-anesthesia follow up: Airway intact: Yes Vital signs: Temperature 97.7 F Pulse Rate 85 Respiratory Rate 16 Blood Pressure 138/88 Pulse Oximetry 98 Oxygen Delivery Me thod Room Air Oxygen Flow Rate Fraction of Inspir ed Oxygen Hydration adequate: Yes Nausea and vomiting: No Pain level: 1 Mental status: Baseline
== END 2025-05-04 15:30 | disposition home or self-care (01) ==
PROVIDERS: Student in an Organized Health Care Education/Training Program; PCP Family Medicine; Visit Provider Student in an Organized Health Care Education/Training Program
PROC: (CPT 26727; principal; 2025-05-04 12:35)
DX: S62.617A Displaced fracture of proximal phalanx of left little finger, initial encounter for closed fracture (principal); W01.0XXA Fall on same level from slipping, tripping and stumbling without subsequent striking against object, initial encounter; Z86.73 Personal history of transient ischemic attack (TIA), and cerebral infarction without residual deficits; I10 Essential (primary) hypertension; Z79.82 Long term (current) use of aspirin; Z79.891 Long term (current) use of opiate analgesic; Z79.01 Long term (current) use of anticoagulants; Z87.891 Personal history of nicotine dependence; Z86.718 Personal history of other venous thrombosis and embolism
CPT/HCPCS: 26727; 73130; 76000; 81025; C1713; J0131; J0690; J1100; J1885; J2250; J2371; J2405; J2704; J2795; J3010; J3490; J7030; J9999

== ENCOUNTER → 2025-05-16 13:49 | Outpatient (BNVA) | payer OTHER, SELFPAY | PROVIDERS: PCP Family Medicine; Visit Provider Physician Assistant | DX: S62.617D Displaced fracture of proximal phalanx of left little finger, subsequent encounter for fracture with routine healing (principal); X58.XXXD Exposure to other specified factors, subsequent encounter | CPT/HCPCS: 73130 ==

== ENCOUNTER 2025-05-16 14:21 | Outpatient (CLI) | payer OTHER, SELFPAY | END 2025-05-16 14:22 | disposition home or self-care (01) | LOC: SOT 14:23 | PROVIDERS: PCP Family Medicine; Visit Provider Physician Assistant | DX: Z46.89 Encounter for fitting and adjustment of other specified devices (principal); S62.619A Displaced fracture of proximal phalanx of unspecified finger, initial encounter for closed fracture; W18.30XA Fall on same level, unspecified, initial encounter | CPT/HCPCS: 97760; L3808 ==